=== PATIENT | male | born 1965 | race Caucasian/White ===

== ENCOUNTER → 2023-07-01 | Outpatient (CLI) | payer OTHER, SELFPAY | END | disposition home or self-care (01) | LOC: LAB 14:39 | PROVIDERS: PCP Family Medicine; Referring Provider Nurse Practitioner; Visit Provider Nurse Practitioner | DX: C61 Malignant neoplasm of prostate (principal) | CPT/HCPCS: 36415; 84153 ==

== ENCOUNTER → 2023-07-24 | Outpatient (CLI) | payer OTHER, SELFPAY ==
--- NOTE | 2023-07-24 13:01 | MRI_ITS ---
STUDY: MR PELVIS WITH AND WITHOUT CONTRAST (PROSTATE) REASON FOR EXAM: Male, 58 years old. Elevated PSA, malignant neoplasm of the prostate gland TECHNIQUE: Multiplanar, multisequence imaging of the pelvis in accordance with PIRADS recommendations before and after intravenous administration of 25 mL clariscan on a 1.5 TE platform using external phased array coil. Dedicated 3 plane small field of view T2 FSE, axial diffusion-weighted imaging with width B values 50-800 s/mm2 and calculated o=5860 s/mm2 and ADC map; and axial contrast enhanced T1 weighted images (dynamic images not available) with temporal resolution in 3 mm slice thickness in addition to full pelvis postcontrast T1-weighted imaging. COMPARISON:None FINDINGS: Size: 3.9 x 4.9 x 4.8 (Lx W x H) cm for 47.7 cubic cm. Quality: Excellent Hemorrhage: Not present Peripheral zone: Homogenous, focal lesion below. Transition zone: Mild heterogeneity without focal lesion. Lesion #1: Location: Left mid gland peripheral zone nodule Size: 0.8 x 0.9 cm T2: homogeneous, moderately hypointense without clear extraprostatic extension, sequence category 4/5 (image 15 series 9) DWI: focal hyperintense on high b-value DWI and markedly hypointense on ADC, sequence category 4/5 (images 17 on series 600 and series 601). Prostate margin: No definitive extraprostatic extension. Lesion overall PI-RADS: 4/5 Neurovascular bundles: Possible involvement with nodule near the neurovascular bundle on image 15 series 9 Seminal vesicles: not involved. Seminal vesicle cysts. Lymph nodes: Mildly enlarged lymph nodes of the bilateral inguinal creases with short axis measuring up to 1.1 cm on the right side. There is also a mildly enlarged lymph node in the lower portion of the retroperitoneum posterior to the left common iliac vein measuring 1.2 cm on image 7 series 4. Bones: no osseous metastases suggested Other pelvic organs: normal MRI/Pelvis W/WO Contrast IMPRESSION: 1. PI-RADS 4 - High (clinically significant cancer is likely to be present). 2. Bilateral inguinal and lower retroperitoneal/iliac chain lymph nodes are indeterminate. PI?RADSR v2.1 Assessment Categories PI-RADS 1 ? Very low (clinically significant cancer is highly unlikely to be present) PI-RADS 2 ? Low (clinically significant cancer is unlikely to be present) PI-RADS 3 ? Intermediate (the presence of clinically significant cancer is equivocal) PI-RADS 4 ? High (clinically significant cancer is likely to be present) PI-RADS 5 ? Very high (clinically significant cancer is highly likely to be present) Electronically Signed: Tunde Ascencio MD (Brooks) at 14:55 EDT Reading Location ID and State: [facility] / [place] , Service support ,
[2023-07-24 13:50] LABS: CREATININE FINGERSTICK 1.3 mg/dL (0.70-1.30); EGFR FINGERSTICK > 60.0000 mL/min (>60)
== END | disposition home or self-care (01) ==
LOC: MRI 12:59
PROVIDERS: PCP Family Medicine; Referring Provider Urology; Visit Provider Urology
DX: C61 Malignant neoplasm of prostate (principal)
CPT/HCPCS: 72197; A9575

== ENCOUNTER → 2023-10-21 | Outpatient (CLI) | payer OTHER, SELFPAY ==
--- NOTE | 2023-10-21 | PROSBIL_PTH ---
PATHOLOGY RESULTS PATIENT: WENDI MORALES [id number] AGE/SX: 58/M ROOM: RE10/21/[address]: Dr. Jose Miguel Newton MD : 1965 BED: DIS: 10/21/2023 SPEC #: [id number] RECD: 10/21/23 15:56 STATUS: JOSÉ ANTONIO REHoang #: [id number] RIO: 10/21/23 00:[address]: Jose Miguel Newton DEPT: SURGICAL PATHOLOGY RECD BY: Mumtaz Lopez ENTERED: 10/22/23 07:50 SP TYPE: PROST BX OT DR: Dr. India Reeves MD Tissues: PROSTATE RIGHT PROSTATE RIGHT PROSTATE RIGHT PROSTATE LEFT PROSTATE LEFT PROSTATE LEFT Procedures: PROSTATE BX HEADER OPERATION: Prostate biopsy PRE-OP DIAGNOSIS: Elevated PSA TISSUE SUBMITTED: A - Right apex, B - Right mid, C - Right base, D - Left apex, E - Left mid, F - Left base MICROSCOPIC DIAGNOSIS A. Right prostate, apex, core biopsy: Adenocarcinoma. [place] grade: 6 (3+3) Cores involved: 2 out of 2 cores Tissue involved: 60% Greatest tumor length: 7 millimeters B. Right prostate, mid, core biopsy: Adenocarcinoma. [place] grade: 6 (3+3) Cores involved: 2 out of 2 cores Tissue involved: 90% Greatest tumor length: 11 millimeters (discontinuous) Perineural invasion: Present See comment. C. Right prostate, base, core biopsy: Adenocarcinoma. [place] grade: 7 (3+4) Cores involved: 1 out of 2 cores Tissue involved: 45% Greatest tumor length: 6.5 millimeters See comment. D. Left prostate, apex, core biopsy: Adenocarcinoma. [place] grade: 6 (3+3) Cores involved: 1 out of 2 cores Tissue involved: 10% Greatest tumor length: 1.5 millimeters See comment. E. Left prostate, mid, core biopsy: Adenocarcinoma. [place] grade: 7 (3+4) Cores involved: 2 out of 2 cores Tissue involved: 40% (discontinuous) Greatest tumor length: 1 millimeter See comment. F. Left prostate, base, core biopsy: Focal atypical small acinar proliferation. Focal chronic inflammation. See comment. AM:emily 10/23/2023 COMMENT B-F. Immunohistochemistry ([id number]) supports the above diagnosis. Case has been reviewed in consultation with Dr. Del Real who concurs with the above diagnosis. IDC:[email or web address] MICROSCOPIC DESCRIPTION Slides are reviewed. GROSS DESCRIPTION A - Received is one container designated prostate, right apex. The specimen consists of two elongated fragments of light carter-white soft tissue each measuring 1.0 cm in length and 0.1 cm in diameter. The specimen is totally submitted in one cassette. B - Received is one container designated prostate, right mid. The specimen consists of two elongated fragments of light carter-white soft tissue measuring 1.1 and 1.4 cm in length and 0.1 cm in diameter. The specimen is totally submitted in one cassette. C - Received is one container designated prostate, right base. The specimen consists of two elongated fragments of light carter-white soft tissue measuring 0.8 and 1.2 cm in length and 0.1 cm in diameter. The specimen is totally submitted in one cassette. D - Received is one container designated prostate, left apex. The specimen consists of two elongated fragments of light carter-white soft tissue measuring 0.5 and 1.5 cm in length and 0.1 cm in diameter. The specimen is totally submitted in one cassette. E - Received is one container designated prostate, left mid. The specimen consists of two elongated fragments of light carter-white soft tissue each measuring 1.0 cm in length and 0.1 cm in diameter. The specimen is totally submitted in one cassette. F - Received is one container designated prostate, left base. The specimen consists of two elongated fragments of light carter-white soft tissue each measuring 1.0 cm in length and 0.1 cm in diameter. The specimen is totally submitted in one cassette. / SJ:rg 10/22/2023 TC:0 [facility]: [id number] [phone]
--- NOTE | 2023-10-21 | IMM_PTH ---
PATHOLOGY RESULTS PATIENT: WENDI MORALES LOC: [facility] U#:[id number] AGE/SX: 58/M ROOM: RE10/21/[address]: Dr. Jose Miguel Newton MD : 1965 BED: DIS: 10/21/2023 SPEC #: [id number] RECD: 10/23/23 13:44 STATUS: JOSÉ ANTONIO REQ #: [id number] RIO: 10/21/23 00:[address]: Jose Miguel Newton DEPT: IMMUNOHISTOCHEMISTRY RECD BY: Navya Johnson ENTERED: 10/23/23 13:45 SP TYPE: IMMUNO OTHR DR: Dr. India Reeves MD Tissues: PROSTATE RIGHT PROSTATE RIGHT PROSTATE LEFT PROSTATE LEFT PROSTATE LEFT Procedures: 34BE12 (add) P40 (add) 34BE12 (initial) PHYSICIAN & INSTITUTION [place] [id number] SPECIMEN INFORMATION: Tissue Source: B - Right mid, C - Right base, D - Left apex, E - Left mid, F - Left base Clinical Info: Elevated PSA Specimen Number: [id number] B-F CPT code: 21545, 58696 x9 METHODOLOGY: Deparaffinized sections of prefer/formalin-fixed tissue or PAP/DQ stained slides are incubated with monoclonal/polyclonal antibodies/oligonucleotide probes. Localization is made via biotin free immunoperoxidase method. Appropriate controls are performed and reacted as expected. Results on target cell population are indicated in the following table: RESULTS: ANTIBODY / CLONE RESULT Block B P40 (BC28) negative 34BE12 (34BE12) negative Block C P40 (BC28) negative 34BE12 (34BE12) negative Block C P40 (BC28) negative 34BE12 (34BE12) negative Block E P40 (BC28) negative 34BE12 (34BE12) negative Block F P40 (BC28) negative 34BE12 (34BE12) negative These tests were developed and their performance characteristics determined by [facility]. They may not have been cleared or approved by the U.S. Food and Drug Administration. The FDA has determined that such clearance or approval is not necessary. The above immunohistochemical/dualISH markers are ordered and reviewed by the Pathologist. INTERPRETATION: B. Right prostate, mid, core biopsy: Adenocarcinoma. C. Right prostate, base, core biopsy: Adenocarcinoma. D. Left prostate, apex, core biopsy: Adenocarcinoma. E. Left prostate, mid, core biopsy: Adenocarcinoma. F. Left prostate, base, core biopsy: Focal atypical small acinar proliferation. AM:emily 10/24/2023
== END | disposition home or self-care (01) ==
LOC: LABSPEC 16:04
PROVIDERS: PCP Family Medicine; Referring Provider Urology; Visit Provider Urology
DX: R97.20 Elevated prostate specific antigen [PSA] (principal)
CPT/HCPCS: 88305; 88341; 88342; G0416

== ENCOUNTER → 2023-11-06 | Outpatient (CLI) | payer OTHER, SELFPAY ==
--- NOTE | 2023-11-06 13:50 | CT_ITS ---
STUDY: CT ABDOMEN AND PELVIS WITH CONTRAST REASON FOR EXAM: Male, 58 years old. C61 Malignant neoplasm of prostate. Elevated PSA. RADIATION DOSAGE (If Supplied By Facility): CTDIvol = ( 18.68 ) mGy, DLP = ( 1447.21 ) mGycm TECHNIQUE: Transaxial images were obtained from the dome of the diaphragm to the symphysis pubis with oral contrast. Oral and amp;amp; IV Readi-CAT and amp;amp; 100mL Isovue-300 was administered. Sagittal and coronal images were reconstructed. Individualized dose optimization techniques were used for this CT. COMPARISON: None. FINDINGS: The visualized lung bases are unremarkable. The visualized portions of the heart are within normal limits. There is decreased attenuation of the liver consistent with steatosis. Normal gallbladder and extrahepatic biliary system. Normal spleen. Normal pancreas. Normal bilateral adrenal glands. Normal right kidney. Normal left kidney. There is a small hiatal hernia. Normal small intestine. Normal colon. The appendix is visualized and appears normal. There is scattered atherosclerotic calcification of the abdominal aorta, without a demonstrated aneurysm. Normal inferior vena cava. Normal retroperitoneum. Normal urinary bladder. The prostate measures 4.9 cm x 5.2 cm. Calcifications seen within it. There is heterogeneous appearance of the prostate. There is a small umbilical hernia containing fat. Small benign-appearing bilateral inguinal lymph nodes. There are degenerative changes of the visualized lumbar spine. Minimal anterior listhesis of L4 on L5 most likely secondary to facet joint osteoarthritis. CT/Abdomen/Pelvis WITH Contrast IMPRESSION: Fatty infiltration of the liver. Mild enlargement of the prostate with heterogeneous density. Electronically Signed: Bishnu Perez MD at 14:40 EST ,
== END | disposition home or self-care (01) ==
PROVIDERS: PCP Family Medicine; Referring Provider Urology; Visit Provider Urology
DX: C61 Malignant neoplasm of prostate (principal)
CPT/HCPCS: 74177; Q9967

== ENCOUNTER → 2023-11-11 | Outpatient (CLI) | payer OTHER, SELFPAY ==
--- NOTE | 2023-11-11 08:10 | NM_ITS ---
CLINICAL: 58-year-old male with history of elevation of the serum PSA. WHOLE BODY 99m Tc MDP RADIONUCLIDE BONE SCINTIGRAPHY COMPARISON: CT of the abdomen-pelvis 11/06/2023 FINDINGS: Following the intravenous administration of 25.0 mCi of 99m Tc MDP, whole body bone images reveal: 1. Increased tracer concentration is defined in the patellofemoral and medial tibial compartments of both knees, the dorsal medial compartment of the left ankle, the bilateral midfoot, the acromioclavicular and sternoclavicular compartments of both shoulders, fourth lumbar vertebra posteriorly in the midline. 2. The remaining skeletal structures are scintigraphically unremarkable with normal-appearing renal images and urinary bladder activity identified. NM/Bone Scan Whole Body IMPRESSION: 1. The increase in radiopharmaceutical concentration defined in the bilateral shoulders, fourth lumbar vertebra, the wrist and knee articulations bilaterally, the right ankle and left midfoot is commensurate with degenerative arthritis. 2. There is no definitive typical scintigraphic evidence of skeletal metastatic disease. Electronically Signed: Louis Hubbard DO at 23:50 EST ,
--- OUTSIDE RECORDS SUMMARY | 2023-11-11 08:58 | XMS RPT_ITS | CCD ---
Author Name Unknown Address [address] [place] [address] Organization [facility] Care Team Providers Care Personal Injury Paralegal Name Role Phone ANDREW MOYA, DR ATKINSON Primary Care Physician ANDREW MOYA, DR ATKINSON Attending Unavailable ANDREW MOYA, DR ATKINSON Primary Care Unavailable ANA M MOYA, DR KIMO Corcoran Attending Vahid MORALES MD, DR ATKINSON Primary Care Unavailable ANA M MOYA, DR KIMO Corcoran Admitting Vahid WORTHINGTON MD, BRIDGETTE Admitting Jeffry MORALES MD, DR ATKINSON Primary Care Unavailable ALYSSA MOYA, ALEYDA Oliva Consulting Jeffry SHETH MD, JUAN LUIS Becker Attending Jeffry VIRAMONTES MD, DR KIMO Corcoran Consulting Vahid SMITH MD, MARY Consulting Unavailable NATALIE SIEGEL MD, DR NGUYỄN Consulting Leighton VICTORIA MD, JENNIFER Consulting Unavailable ANDREW MOYA, DR ATKINSON Attending Jeffry MORALES MD, DR ATKINSON Primary Care Unavailable Mckenzie MORALES MD Unavailable Jose Miguel Newton Unavailable Unavailable RENAL, GENERAL Unavailable Unavailable BUCKTOWARSING, BHAVNISH Unavailable Unavailneeta RODRIGUEZ MD, PAU Alvarez Unavailable GOOD MOYA, CHINA Alvarez Unavailable DIALLO ANGEL MD Unavailable MAURIZIO DE LUNA Unavailable Saray Lott RN Unavailable Unavailable GOOD MOYA, WAGNER Aguila Unavailable [phone] BIANCA ASHBY RN Unavailable Unavailable BALWINDER RUSHING RN Unavailable UnavailHETAL Law Unavailable Unavailable Nilo MORALES MD Unavailable SANTY MARTELL Unavailable Unavailable Ilana Mccauley Unavailable Unavailable Cheri Giron Unavailable Unavailable Berny RN, Yane Unavailable Unavaila taisha Garcia RN, Pamela Unavailable Unavailable Unavailable Unavailable AGGIE RAM MD Admitting UnavailAGGIE Cheung MD Primary Care UnavailAGGIE Cheung MD Attending Unavailabl e KWESI CALDWELL PA%C Admitting Unavail able KWESI CALDWELL PA%C Primary Care Unavail able KWESI CALDWELL PA%C Attending Unavail able JAYME CARRERA MD Admitting Unavailable JAYME CARRERA MD Primary Care Unavailable JAYME CARRERA MD Attending Unavailable JAYME CARRERA MD Admitting Unavailable JAYME CARRERA MD Primary Care Unavailable JAYME CARRERA MD Attending Unavailable OLGA LIDIA SCHERER DO Primary Care Unavailable OLGA LIDIA SCHERER DO Attending Unavailable Mckenzie MORALES Consulting Unavailable Mckenzie MORALES Referring Unavailable OLGA LIDIA SCHERER DO Admitting Unavailable PROVIDER, UNKNOWN Consulting Unavailable PROVIDER, UNKNOWN Consulting Unavailable PROVIDER, UNKNOWN Consulting Unavailable Allergies Allergy Classification Reported Allergen(s) Allergy Type Date of Onset Reaction(s) Facility (9 sources) Lisinopril; Translations: [lisinopril] Drug Allergy 12-11-2022 cough [facility] (1 source) Lisinopril Drug Allergy [facility] Repository Medications Current Medications Medication Drug Class(es) Dates Sig (Normalized) Sig (Original) apixaban 5 mg oral tablet (9 sources) Factor Xa Inhibitor Start: 03-14-2023 apixaban 5 mg oral tablet Dose : 5 mg = 1 tab(s), Oral, BID, # 60 tab(s), 3 Refill(s), Pharmacy: [facility], 188, cm, 02/20/23 16:30:00 EDT, Height, 125 Start Date: 03/14/23 Status: Ordered Completed/Discontinued Medications Medication Drug Class(es) Dates Sig (Normalized) Sig (Original) amLODIPine 10 mg oral tablet (7 sources) Dihydropyridine Calcium Channel Ayala Start: 03-05-2020 End: 04-05-2021 take 1 tablet by mouth once daily amLODIPine Besylate 10 MG Oral Tablet ; 1 (one) Tablet daily for 90 days Quantity: 90 {Tablet} Refills: 3 Ordered: 05-Apr-2021 MD Mckenzie MORALES Start: 05-Mar-2020 End: 05-Apr-2021 Status: Inactive aspirin 81 mg oral tablet (7 sources) Platelet Aggregation Inhibitor, Nonsteroidal Anti-inflammatory Drug take 1 tablet by mouth once daily Aspirin 81 MG Oral Tablet ; 1 daily (81 MG) Status: Inactive azithromycin 250 mg oral tablet (7 sources) Macrolide Antimicrobial Start: 02-05-2011 End: 03-17-2013 AZITHROMYCIN, 250MG (Oral Tablet) ; Tablet daily for 0 days Quantity: 6 {Tablet} Refills: 0 Ordered: 17-Mar-2013 SHERYL Lott Start: 05-Feb-2011 End: 17-Mar-2013 Status: Inactive Comments: take two tablets day one and then one tablet daily for 4 daysmeds to be dispensed in office Problems Active Problems Problem Classification Problem Date Documented Da te Episodic/Chronic Acute bronchitis (14 sources) Acute bronchitis; Translations: [Acute bronchitis, unspecified] 02-05-2011 Episodic Administrative/social admission (20 sources) Patient encounter status; Translations: [Counseling, unspecified] 01-26-2020 Episodic Cancer of prostate (20 sources) Malignant tumor of prostate; Translations: [Malignant neoplasm of prostate] Onset: 09-30-2019 07-30-2023 Chronic Past or Other Problems Problem Classification Problem Date Documented Date Episodic/Chronic Headache; including migraine (20 sources) Headache; including migraine 12-11-2022 Other aftercare (2 sources) Encounter for therapeutic drug level monitoring; Translations: [Encounter for therapeutic drug level monitoring] Onset: 03-28-2023 Episodic Unclassified (7 sources) Transition into care - The patient is transitioning into care from a hospital ([facility] 03/29 - 04/01/23 treated for Atrial Fib). 04-08-2023 Unclassified (7 sources) Transition into care - The patient is transitioning into care from a hospital ([facility] 03/13/23 to for atrial fibrillation). Note for Transition into care : states seems to be better. Been taking blood pressure and pulse at home and pulse have been low. 03/19/23 pulse was 51 03/26/23 54 03/27/23 43 and 03/27/23 52. He states he was felling tired, but not sure if it has to do with pulse being down. 03-27-2023 Unclassified (7 sources) [ADDITIONAL REASON] Elevated PSA - Note for Elevated PSA : review recent labs. 12-11-2022 Unclassified (6 sources) [ADDITIONAL REASON] Atrial Fibrillation - The last clinic visit was 4 month(s) ago. Note for Atrial fibrillation : sees Dr Ram. 12-11-2022 Unclassified (3 sources) HYPERTENSION - Note for HYPERTENSION : checks BP at home. Review recent labs. 08-21-2022 Unclassified (4 sources) [ADDITIONAL REASON] hyponkalemia - does not take potassium any more. See lab reports. 08-21-2022 Unclassified (6 sources) [ADDITIONAL REASON] Immunization - Immunizations discussed with patient/ parent: yes (declines flu shot.). 08-21-2022 Unclassified (7 sources) HYPERTENSION - Note for HYPERTENSION : Pt is feeling good. 04-03-2022 Unclassified (7 sources) !Patient notification of lab results - Dr. Morales. The test(s) that you had done were/was blood work (There was a slight increase in the PSA to 5.8. We should retest in 6 months. The iron was back to normal). You should call our office if you have any questions. Please continue your current medication/therapy and follow up as scheduled. 12-06-2021 Unclassified (7 sources) HYPERTENSION - The symptoms have been associated with edema (occasional), while the symptoms have not been associated with chest pain. 12-05-2021 Unclassified (7 sources) !Patient notification of lab results - Dr. Morales. The test(s) that you had done were/was blood work (This was normal). You should call our office if you have any questions. Please continue your current medication/therapy and follow up as scheduled. 05-03-2021 Unclassified (7 sources) !Patient notification of lab results - Dr. Morales. The test(s) that you had done were/was blood work (Your kidney function is a bit worse again with a creatinine of 1.55. Your PSA was 5.51 and your iron remains a bit low at 53. Please continue iron supplementation and contact Dr. Caballero (nephrology) to verify that you have a follow up appointment.). You should call our office if you have any questions. Please continue your current medication/therapy and follow up as scheduled. 04-06-2021 Unclassified (7 sources) HYPERTENSION - The symptoms have been associated with edema (Bilateral ankle/foot edema resolves overnight.), while the symptoms have not been associated with chest pain or dyspnea. 04-05-2021 Unclassified (7 sources) [ADDITIONAL REASON] hypokalemia - saw Dr Caballero 08-19 and switched Losartan Potassium HCTZ to Diovan and added Vit D3. Had recent labs. 09-06-2020 Unclassified (7 sources) Rash - The onset of the rash has been acute and has been occurring in a persistent pattern for 4 days. The course has been constant. The rash is characterized as red and flat. The rash was first seen on the lower extremity (right lower leg). There has been associated chills, fatigue, fever and pain, while there has been no itching. Note for Rash : pt felt chills and nausea 07-14-20 and got negative COVID test at home. No injury or bite. 07-18-2020 Unclassified (5 sources) HYPERTENSION - Note for HYPERTENSION : review recent labs. Thinks he is taking clonidine daily instead of twice daily. Not on Potassium. 06-13-2020 Unclassified (5 sources) [ADDITIONAL REASON] Follow up Tests results - Lab results: elevated PSA. Note for Follow up to discuss laboratory test results : saw Dr Rodriguez and did biospy. Will follow up 06-21-20. 06-13-2020 Unclassified (4 sources) HYPERTENSION - There has been no associated chest pain. 04-12-2020 Unclassified (4 sources) [ADDITIONAL REASON] Follow up Tests results - Lab results: abnormal electrolytes. Date: (03-28-20). Note for Follow up to discuss laboratory test results : Referral sent to Kidney and Hypertension specialist. 04-12-2020 Unclassified (7 sources) !Patient notification of lab results - Dr. Morales. The test(s) that you had done were/was blood work (Your kidney function is a bit lower again at 1.6 (higher is poorer function) but better than it had been several weeks ago. Your potassium is still low. I would like to send you to see the kidney specialist (hot walker) in [place] to further evaluate the situation. Please let us know if you are agreeable to the consultation). You should call our office if you have any questions. 03-29-2020 Unclassified (7 sources) !Patient notification of lab results - Dr. Morales. The test(s) that you had done were/was blood work (Your potassium is still low. Please increase to 2 of the 10 mEq potassium 2x daily. We should recheck the labs in 10 days.). You should call our office if you have any questions. 03-16-2020 Unclassified (7 sources) !Patient notification of lab results - Dr. Morales. The test(s) that you had done were/was blood work (Your potassium was low at 3.1. This is likely due to the HCTZ in your blood pressure medication. I am sending a potassium supplement to the pharmacy that you should start taking daily. I would like you to have a repeat lab test 1 month after you start it.Your PSA test was elevated slightly at 5.43. This can be due to enlargement of the prostate or it can be an indication of an early prostate cancer. I would like to have this repeated again in 1 month and then have you back for a follow up exam in the office a week or two later.). You should call our office if you have any questions. 01-27-2020 Unclassified (7 sources) Foot Problem - Note for Foot problem : Left foot 3rd toenail was thick, yellow/brown and ruff. Skin around toenail is red and was tender. Pt sanded the nail last night and it feels better this morning. Symptoms started months ago and have gotten worse. 01-26-2020 Unclassified (7 sources) Foot Problem - Symptoms are located in the right foot (ingrown great toenail). Onset was week(s) ago. Note for Foot problem : . 12-09-2017 Unclassified (7 sources) Routine Check - Patient is here to review the medical problem(s) of hypertension. Note for Routine Check : c/o itching in groin and thigh area after work when undressing to shower. No rash. Worse in the summer months.. 10-10-2017 Unclassified (7 sources) Unspecified Diagnosis 09-13-2016 Unclassified (7 sources) HYPERTENSION - Note for HYPERTENSION : Last visit was 2 months ago.. 09-13-2016 Unclassified (7 sources) !Patient notification of lab results 1 - [place]. The test(s) that you had done were/was a Lyme disease test. The results of your testing were negative . Please let us know if your symptoms do not improve. 07-07-2016 Unclassified (7 sources) [ADDITIONAL REASON] Transition into care - The patient is transitioning into care from an emergency room and a summary of care was reviewed . 07-03-2016 Unclassified (5 sources) [ADDITIONAL REASON] HYPERTENSION - Note for HYPERTENSION : Needs Amlodipine refilled. 07-03-2016 Unclassified (7 sources) HYPERTENSION - Note for HYPERTENSION : No headaches, dizzy spells, swelling of ankles, chest pain or shortness of breath. 02-20-2016 Unclassified (7 sources) HYPERTENSION - Note for HYPERTENSION : Last visit was 3 weeks ago.. 11-17-2015 Unclassified (7 sources) !Patient notification of lab results 1 - [place]. The test(s) that you had done were/was a CMP (kidneys, liver, nutrition, sugar). The results of your testing were normal . Please note that we have included copies of your results, continue your current medication/therapy and follow up as scheduled. 10-28-2015 Unclassified (7 sources) HYPERTENSION - Note for HYPERTENSION : Last visit was 1 week ago.. 10-27-2015 Unclassified (7 sources) !Patient notification of lab results 1 - Dr. Morales. Note for !Patient notification of lab results 1 : Wendi, your labs looked fine. 03-20-2013 Unclassified (7 sources) Cough - The cough has been occurring in a persistent pattern for 1 month. The cough is characterized as productive of mucoid sputum (HAS HAD COUGH FOR 1 MONTH). Note for Cough : IS VERY FATIGUED AND ACHES ALL OVER. 10-23-2010 Unclassified (1 source) Atrial Fibrillation - The last clinic visit was 4 month(s) ago. Note for Atrial fibrillation : sees Dr Ram. 12-11-2022 Unclassified (3 sources) hyponkalemia - does not take potassium any more. See lab reports. 08-21-2022 Unclassified (4 sources) [ADDITIONAL REASON] HYPERTENSION - Note for HYPERTENSION : checks BP at home. Review recent labs. 08-21-2022 Unclassified (3 sources) Follow up Tests results - Lab results: abnormal electrolytes. Date: (03-28-20). Note for Follow up to discuss laboratory test results : Referral sent to Kidney and Hypertension specialist. 04-12-2020 Unclassified (3 sources) [ADDITIONAL REASON] HYPERTENSION - There has been no associated chest pain. 04-12-2020 Unclassified (2 sources) HYPERTENSION - Note for HYPERTENSION : Needs Amlodipine refilled. 07-03-2016 Unclassified (4 sources) [ADDITIONAL REASON] Atrial Fibrillation - The last clinic visit was 5 month(s) ago. Note for Atrial fibrillation : sees cardio. Last visit Sep 2023 and they discontinued Eliquis. 10-15-2023 Unclassified (2 sources) Follow up Tests results - Lab results: elevated PSA. Note for Follow up to discuss laboratory test results : saw Dr Rodriguez and did biospy. Will follow up 06-21-20. 06-13-2020 Unclassified (2 sources) [ADDITIONAL REASON] HYPERTENSION - Note for HYPERTENSION : review recent labs. Thinks he is taking clonidine daily instead of twice daily. Not on Potassium. 06-13-2020 Unclassified (1 source) Immunization - Immunizations discussed with patient/ parent: yes (declines flu shot.). 08-21-2022 Urinary tract infections (7 sources) Urinary tract infections 07-03-2016 Results Test Name Value Interpretation Reference Range Facil ity Vital Signs Date Time Vital Sign Value Performing Clinician Nelson castro 10-15-2023 16:41-0500 Body height 181.61 cm Yane Arrieta RN [facility] [employer] [facility] 10-15-2023 16:41-0500 Body mass index (BMI) [Ratio] 38.23 kg/m2 Yane Arrieta RN [facility] [place] [employer] [facility]. 10-15-2023 16:41-0500 Body surface area Derived from formula 2.44 m2 Yane Arrieta RN [facility] [place].; [employer] [facility]. 10-15-2023 16:41-0500 Body weight 126.1 kg Yane Arrieta RN [facility] [employer] [facility].; [facility] [employer] [facility]. 10-15-2023 16:41-0500 Diastolic blood pressure 81 mm[Hg] Yane [facility] RN [facility]; [facility] [place] Encounters Encounter Date Encounter Type Care Provider Facility Start: 10-15-2023 Patient encounter procedure Mckenzie MORALES MD Work Phone: [facility] [place] Start: 10-15-2023 End: 10-15-2023 Office outpatient visit 15 minutes Mckenzie MORALES MD Work Phone: [facility] [place] Start: 10-10-2023 End: 10-10-2023 ambulatory KWESI NANCE ROMELIA [facility] Start: 07-18-2023 End: 07-18-2023 Historical Summary Mck[facility]ALES [facility] Start: 07-17-2023 End: 07-18-[address] KIMO VIRAMONTES MD Facility:A Start: 07-17-2023 End: 07-18-[address] KIMO VIRAMONTES MD [facility] Start: 07-08-2023 End: 07-08-2023 Historical Summary Mckenzie MORALES MD [facility] Start: 07-02-2023 End: 07-02-2023 Lab Only Mckenzie MORALES MD [facility] Start: 04-12-2023 End: 04-12-2023 Telephone follow-up Mckenzie MORALES MD Work Phone: [facility] [place] Start: 04-10-2023 End: 04-10-2023 Historical Summary Mckenzie MORALES MD Work Phone: [facility] [place] Start: 04-09-2023 End: 04-10-2023 ambulatory JAYME MOYA [facility] Start: 04-08-2023 End: 04-08-2023 Transitional care manage srvc 7 day discharge Mckenzie MORALES MD Work Phone: [facility] [employer] Start: 04-04-2023 End: 04-04-2023 Historical Summary Mckenzie MORALES MD Work Phone: [facility] Start: 03-29-2023 End: 04-01-2023 Evaluation and management of inpatient BRIDGETTE WORTHINGTON MD Facility:A Start: 03-29-2023 End: 04-01-2023 Evaluation and management of inpatient BRIDGETTE WORTHINGTON MD [facility] Start: 03-28-2023 End: 03-29-2023 Emergency department patient visit OLGA LIDIA GALICIA [facility] Start: 03-28-2023 End: 04-02-[address] CHINA MORALES MD Facility:A Start: 03-27-2023 End: 03-27-2023 Transitional care manage srvc 14 day discharge Mckenzie MORALES MD Work Phone: [facility] [employer] [facility] Start: 03-16-2023 End: 03-16-2023 Historical Summary Mckenzie MORALES MD [facility] Start: 03-13-2023 End: 03-16-2023 Evaluation and management of inpatient JAYME MOYA EUGENE [facility] Start: 03-08-2023 End: 03-08-2023 [facility] Start: 12-11-2022 End: 12-11-2022 Office outpatient visit 15 minutes Mckenzie MORALES MD Work Phone: [facility] [facility] Start: 12-04-2022 End: 12-04-2022 Lab Only Mckenzie MORALES MD Work Phone: [facility] [place] Start: 12-04-2022 End: 12-09-[address] CHINA MORALES MD Facility:A Start: 08-21-2022 End: 08-21-2022 Office outpatient visit 15 minutes Mckenzie MORALES MD Work Phone: [facility] Start: 08-14-2022 End: 08-14-2022 Lab Only Mckenzie MORALES MD Work Phone: [facility] [employer]. Start: 04-03-2022 End: 04-03-2022 Office outpatient visit 15 minutes Mckenzie MORALES MD Work Phone: [employer] [facility] Start: 02-08-2022 End: 02-08-2022 Medication Refill/Order Mckenzie MORALES MD Work Phone: [employer] [facility] Start: 12-06-2021 End: 12-06-2021 Follow-up encounter Mckenzie MORALES MD Work Phone: [facility] Start: 12-05-2021 End: 12-05-2021 Office outpatient visit 15 minutes Mckenzie MORALES MD Work Phone: [employer] [facility] Start: 10-31-2021 End: 11-01-2021 Medication Refill/Order Mckenzie MORALES MD Work Phone: [employer] [facility]. Start: 09-25-2021 End: 09-25-2021 Historical Summary Mckenzie MORALES MD Work Phone: [employer]. Start: 05-03-2021 End: 05-03-2021 Follow-up encounter Mckenzie MORALES MD Work Phone: [employer] [place] [employer]. Start: 05-02-2021 End: 05-02-2021 Office outpatient visit 15 minutes Mckenzie MORALES MD Work Phone: [employer] Start: 04-06-2021 End: 04-06-2021 Follow-up encounter Mckenzie MORALES MD Work Phone: [employer] [place] [employer] Start: 04-05-2021 End: 04-05-2021 Office outpatient visit 15 minutes Mckenzie MORALES MD Work Phone: [employer] [place] [employer] Start: 09-06-2020 End: 09-06-2020 Patient encounter procedure Mckenzie MORALES MD Work Phone: [employer] Start: 09-06-2020 End: 09-06-2020 Office outpatient visit 15 minutes Mckenzie MORALES MD Work Phone: [employer] Start: 08-20-2020 End: 08-20-2020 Historical Summary Mckenzie MORALES MD Work Phone: [employer] [place] [employer] Start: 08-16-2020 End: 08-16-2020 Historical Summary Mckenzie MORALES MD Work Phone: [employer] [place] [employer] Start: 07-18-2020 End: 07-18-2020 Office outpatient visit 15 minutes Mckenzie MORALES MD Work Phone: [employer] Start: 06-13-2020 End: 06-13-2020 Office outpatient visit 15 minutes Mckenzie MORALES MD Work Phone: [employer] Start: 04-12-2020 End: 04-12-2020 Office outpatient visit 25 minutes Mckenzie MORALES MD Work Phone: [employer] Start: 04-02-2020 End: 04-02-2020 Results Review Mckenzie MORALES MD Work Phone: [employer] Start: 03-29-2020 End: 03-29-2020 Patient encounter procedure Mckenzie MORALES MD Work Phone: [email or web address] Start: 03-28-2020 End: 03-28-2020 Lab Only Mckenzie MORALES MD Work Phone: [email or web address]. Start: 03-16-2020 End: 03-16-2020 Results Review Mckenzie MORALES MD Work Phone: [employer]. Start: 03-15-2020 End: 03-15-2020 Lab Only Mckenzie MORALES MD Work Phone: [employer] Start: 03-05-2020 End: 03-05-2020 Medication Refill/Order Mckenzie MORALES MD Work Phone: [email or web address] Start: 03-04-2020 End: 03-04-2020 Lab Only Mckenzie MORALES MD Work Phone: [employer] Start: 01-27-2020 End: 01-27-2020 Follow-up encounter Mckenzie MORALES MD Work Phone: [email or web address] Start: 01-26-2020 End: 01-26-2020 Office outpatient visit 15 minutes Mckenzie MORALES MD Work Phone: [email or web address]. Start: 01-08-2019 End: 01-08-2019 Office outpatient visit 10 minutes Mckenzie MORALES MD Work Phone: [employer] Start: 12-30-2018 End: 12-30-2018 Medication Refill/Order Mckenzie MORALES MD Work Phone: [employer] Start: 12-09-2017 End: 12-09-2017 Office outpatient visit 25 minutes Mckenzie MORALES MD Work Phone: [email or web address]. Start: 10-10-2017 End: 10-10-2017 Office outpatient visit 10 minutes Mckenzie MORALES MD Work Phone: [email or web address]. Start: 09-13-2016 End: 09-13-2016 Medication Refill/Order Mckenzie MORALES MD Work Phone: [email or web address]. Start: 09-13-2016 End: 09-13-2016 Office outpatient visit 15 minutes Mckenzie MORALES MD Work Phone: [email or web address]. Start: 07-07-2016 End: 07-07-2016 Results Review Mckenzie MORALES MD Work Phone: [email or web address]. Start: 07-03-2016 End: 07-03-2016 Office outpatient visit 15 minutes Mckenzie MORALES MD Work Phone: [facility] [employer]. Start: 06-25-2016 End: 06-25-2016 Historical Summary Mckenzie MORALES MD Work Phone: [email or web address]. Start: 02-20-2016 End: 02-20-2016 Office outpatient visit 10 minutes Mckenzie MORALES MD Work Phone: [employer]. Start: 11-17-2015 End: 11-17-2015 Office outpatient visit 10 minutes Mckenzie MORALES MD Work Phone: [employer]. Start: 10-28-2015 End: 10-28-2015 Follow-up encounter cMkenzie MORALES MD Work Phone: [employer]. Start: 10-27-2015 End: 10-27-2015 Office outpatient visit 10 minutes Mckenzie MORALES MD Work Phone: [employer]. Start: 10-20-2015 End: 10-20-2015 Office outpatient visit 10 minutes Mckenzie MORALES MD Work Phone: [facility] [employer] [facility] [place] Start: 04-21-2013 End: 04-21-2013 Patient encounter procedure Mckenzie MORALES MD Work Phone: [facility] [place] Start: 03-20-2013 End: 03-20-2013 Results Review Mckenzie [facility]ORALES MD [facility] Start: 03-17-2013 End: 03-17-2013 Patient encounter procedure Mckenzie MORALES MD Work Phone: [facility] [place] Start: 02-05-2011 End: 02-05-2011 Patient encounter procedure Mckenzie MORALES MD Work Phone: [facility] [facility] [employer] [facility] [place] Start: 10-23-2010 End: 10-23-2010 Medication Refill/Order Mckenzie MORALES MD Work Phone: [facility] [employer] Procedures Date Procedure Procedure Detail Performing Clinician Start: 07-18-2023 End: 07-18-2023 No Known Past Surgical History Mckenzie MORALES MD Work Phone: Start: 07-17-2023 End: 07-17-2023 ablation for afib Mckenzie MORALES MD Work Phone: Start: 07-01-2023 End: 07-01-2023 Prostate specific antigen measurement Mckenzie MORALES MD Work Phone: Plan of Treatment Date Care Activity Detail Author Start: 02-12-2024 [facility] visit, estab pt Medical; ESTABLISHED PATIENT ROUTINE VISIT - [employer] ([place]) Start: 12-Feb-2024 16:00 MD Mckenzie MORALES Appointment Request [employer]. Start: 10-15-2023 [facility] visit, estab pt Medical; ESTABLISHED PATIENT ROUTINE VISIT - needed this late [employer] ([place]) Start: 15-Oct-2023 16:15 MD Mckenzie MORALES Appointment Request [employer] ([place]) Start: 07-31-2021 Assay of iron IRON (84520) S tart: 31-Jul-2021 18:59 Request [facility] [place].; [facility] Start: 07-31-2021 Basic metabolic pane l calcium total BMP (65528) Start: 31-Jul-2021 18:59 Request [facility] [place].; [facility] Start: 04-05-2021 Patient Education [facility] [place].; [facility]. Start: 03-04-2020 Assay of prostate specific antigen total PSA (PROSTATE SPECIFIC ANTIGEN) (23246) Start: 04-Mar-2020 14:47 Request [employer] [facility] [place]. Start: 01-08-2019 Patient Education HYPERTENSION Indication: Hypertension goal BP (blood pressure) < 130/80 Start: 08-Jan-2019 Instruction Type: Patient Education [employer]; [employer] [facility] [place]. Start: 12-09-2017 End: 12-09-2017 Excision nail matrix permanent removal EXCISION, TOENAIL, INGROWN (36027) Date: 09-Dec-2017 [facility] [place]; [facility] [place]. Start: 12-09-2017 Patient Education INGROWING TO ENAIL Indication: Ingrown right big toenail Start: 09-Dec-2017 Instruction Type: Patient Education [employer]; [employer] [facility] [place]. Start: 10-10-2017 Patient Education TINEA CRURIS Indication: Tinea cruris Start: 10-Oct-2017 Instruction Type: Patient Education [employer].; [employer] [facility] [place]. Start: 09-13-2016 Patient Education HYPERTENSION Indication: Hypertension goal BP (blood pressure) < 130/80 Start: 13-Sep-2016 Instruction Type: Patient Education [employer].; [employer] [facility] [place]. Start: 07-03-2016 Patient Education UTI - MEN In dication: Urinary tract infection with hematuria, site unspecified Start: 03-Jul-2016 Instruction Type: Patient Education [facility]. Start: 07-03-2016 Culture bacterial quanttative colony count urine URINE LEV CULTURE-GRACE COL COUNT (88727) Start: 03-Jul-2016 13:56 Request [facility].; [facility]. Start: 02-20-2016 Patient Education HYPERTENSION Indication: Hypertension goal BP (blood pressure) < 130/80 Start: 20-Feb-2016 Instruction Type: Patient Education [facility] [employer].; [facility] [place]. Start: 11-17-2015 Patient Education HYPERTENSION Indication: Hypertension goal BP (blood pressure) < 130/80 Start: 17-Nov-2015 Instruction Type: Patient Education [facility] [employer].; [facility] Invoiceable. Start: 10-27-2015 Patient Education HYPERTENSION Indication: Hypertension goal BP (blood pressure) < 130/80 Start: 27-Oct-2015 Instruction Type: Patient Education [facility] [employer]; [facility] [facility]. Start: 10-20-2015 Patient Education HYPERTENSION Indication: Hypertension goal BP (blood pressure) < 130/80 Start: 20-Oct-2015 Instruction Type: Patient Education [facility] [employer]; [facility] [facility]. Start: 03-17-2013 Patient Education HYPERTENSION Indication: Hypertension goal BP (blood pressure) < 130/80 Start: 17-Mar-2013 Instruction Type: Patient Education [facility]; [facility] [employer]. Work Phone: Immunizations Immunization Date Immunization Notes Care Provider [facility] 08-21-2022 influenza virus vaccine, unspecified formulation Mckenzie MORALES MD Work Phone: [facility] [facility]; [facility] Payers Date Payer Category Payer Unknown [id number] 1965 Unknown [id number] [id number] [id number] 1966 Unknown [id number] 2.16.8 [id number] 1966 Unknown [id number] 2.16.8 [id number] 1966 Unknown [id number] 2.16.8 [id number] 1966 Unknown [id number] 2.16.8 [id number] 1966 Unknown [id number] 2.16.8 [id number] 1966 Unknown [id number] 2.16.8 [id number] 1966 Unknown [id number] 2.16.84 [id number] 1965 Unknown [id number] 2.16.[id number] [facility] Social History Date Type Detail Facility Start: 02-20-2021 Tobacco smoking status Ex-smoker (fi nding) [facility] Functional Status Date Assessment Result Facility 07-18-2023 Functional Status Repositions self [facility] 07-17-2023 Functional Status Evening Snack Percent 1 00 [facility] 07-17-2023 Functional Status [facility] 07-17-2023 Functional Status [facility] 07-17-2023 Functional Status Room check performed [facility] 07-17-2023 Functional Status [facility] 04-01-2023 Functional Status Identified as high risk, Fall ID band on, Room located near nursing station, Bed alert on, Door open, Bathroom light on, Non-Slip footwear [facility] 04-01-2023 Functional Status [facility] 04-01-2023 Functional Status [facility] 04-01-2023 Functional Status [facility] 04-01-2023 Functional Status [facility] 03-31-2023 Functional Status Patient refused [facility] 03-31-2023 Functional Status Activity Assistance Ind ependent [facility] 03-31-2023 [facility]23 Functional Status Breakfast Percent 100 A [facility] 03-29-2023 Functional Status Ambulation in Room [facility] 03-29-2023 [facility] Mental Status Date Assessment Result Facility 07-18-2023 Mental Status Oriented x 4 [facility] 07-17-2023 Mental Status [facility] 07-17-2023 Mental Status [facility] 07-17-2023 Mental Status [facility] 04-01-2023 Mental Status Oriented x 4 [facility] 04-01-2023 Mental Status [facility] 04-01-2023 Mental Status [facility] Clinical Notes 03-19-2023 to 07-18-2023 Note Date & Type Note Facility 07-18-2023 Hospital Discharge instructions Patient Education 07/18/2023 08:06:38 3-- EP Study/Ablation (06/2018) (CUSTOM) ELECTROPHYSIOLOGY STUDY/ABLATION Discharge Instructions DIET INSTRUCTIONS Resume diet as prior to procedure ACTIVITIES Do not drive FOR 24 HOURS No heavy lifting GREATER THAN 25 POUNDS or pushing or straining FOR 48 hours BATHING/SHOWERING May tub bathe in 48 hours Do not sit in hot tub, whirlpool, or swim for 48 hours May shower today WOUND CARE You may go home with a Band-Aid over your procedure site. Keep this Band-Aid on for the next 24 hours and then remove it leaving the site open to air. Some degree of bruising and tenderness is normal around the procedure site. It will take a while for any bruising to completely resolve. Keep your site clean and dry. You need to report the following to your photofinishing laboratory worker: Any draining or oozing from the site Any swelling at the site Any increased pain or tenderness at the site Any numbness in your leg where the procedure was done Any sign of infection WATCH FOR SIGNS OF INFECTION: Elevated temperature above 100.5 Redness or swelling Increased pain Foul odor or drainage. If you have any questions, please call your doctor at the number listed on your follow up instructions. Follow all instructions given to you by your physician. Document Released: 09/16/2006 Document Revised: 09/02/2013 Document Reviewed: 09/17/2014 ExitCare Patient Information 2015 [employer], [employer]. This information is not intended to replace advice given to you by your health care provider. Make sure you discuss any questions you have with your health care provider. Follow Up Care 05/28/2023 15:59:27 With:KWESI CALDWELL Address: [address] [place] [address]- When:08/19/2023 14:00:00 [facility] 07-18-2023 Summary of episode note Discharge Instructions Thank you for allowing [facility] to assist you with your healthcare needs. The following is important discharge information regarding your hospital visit. Your Care Team CHINA MORALES MD What to do next Scheduled Follow-Up Appointments Appointment Type When With Where Contact InformationCV OV 08/19/2023 02:00 PM EST KWESI CALDWELL [facility] Follow Up Appointments Follow Up with KWESI CALDWELL When 08/19/2023 02:00 PM EST Where: [address] [place] [address]- The Following Activity and Diet Have Been Ordered for You Discharge Activity - Ordered -- Lifting Restricted less than 25 pounds, No lifting over 25 pounds for 48 hours. May shower. No tub bath or pool for 48 hours., 07/18/23 6:57:00 EDT Discharge Diet - Ordered -- No changes were made to your diet during your hospital stay. Please resume your pre hospitalization diet on discharge., 07/18/23 6:57:00 EDT Allergies lisinopril (cough) Medications Please ask your primary doctor or pharmacist before taking any other medication not listed, including over the counter drugs, herbal medications, vitamins and or supplements as they may interact with your home medications. What How Much When Instructions Last Dose New colchicine (colchicine 0.6 mg oral tablet) 1 tab(s) by mouth Two (2) times a day Duration: 7 Days Pickup at [facility] 0800 New naproxen (Aleve 220 mg oral tablet) 2 tab(s) by mouth Twice daily with meals Duration: 14 Days Refills: 1 Pickup at [facility] Unchanged apixaban (apixaban 5 mg oral tablet) 1 tab(s) by mouth Two (2) times a day RESUME SATURDAY EVENING Unchanged dofetilide (Tikosyn 250 mcg oral capsule) 1 cap by mouth Every 12 hours Unchanged spironolactone (spironolactone 25 mg oral tablet) 1 tab(s) by mouth Once a day with a meal Unchanged valsartan (valsartan 160 mg oral tablet) 0.5 tab(s) by mouth Once a day Pharmacy Information [facility]: [address] [place], [place] [id number] [phone] What How Much When Comments Stop Taking metoprolol (Metoprolol Succinate ER 25 mg oral TABLET extended release) 0.5 tab(s) by mouth Once a day TAKE ONE-HALF TABLET BY MOUTH EVERY DAY Please take this list to your next doctor s visit. Bring all medications you take, including over the counter medications, herbals and other supplements with you to your doctor s visit. Patients and families are reminded to discard old lists and to update any records with all medication providers or retail pharmacies. Education Materials ELECTROPHYSIOLOGY STUDY/ABLATION Discharge Instructions DIET INSTRUCTIONS Resume diet as prior to procedure ACTIVITIES Do not drive FOR 24 HOURS No heavy lifting GREATER THAN 25 POUNDS or pushing or straining FOR 48 hours BATHING/SHOWERING May tub bathe in 48 hours Do not sit in hot tub, whirlpool, or swim for 48 hours May shower today WOUND CARE You may go home with a Band-Aid over your procedure site. Keep this Band-Aid on for the next 24 hours and then remove it leaving the site open to air. Some degree of bruising and tenderness is normal around the procedure site. It will take a while for any bruising to completely resolve. Keep your site clean and dry. You need to report the following to your photofinishing laboratory worker: Any draining or oozing from the site Any swelling at the site Any increased pain or tenderness at the site Any numbness in your leg where the procedure was done Any sign of infection WATCH FOR SIGNS OF INFECTION: Elevated temperature above 100.5 Redness or swelling Increased pain Foul odor or drainage. If you have any questions, please call your doctor at the number listed on your follow up instructions. Follow all instructions given to you by your physician. Document Released: 09/16/2006 Document Revised: 09/02/2013 Document Reviewed: 09/17/2014 ExitCare Patient Information 2015 [employer]. This information is not intended to replace advice given to you by your health care provider. Make sure you discuss any questions you have with your health care provider. Additional Information VACCINATE! IT SAVES LIVES! Members of the community who have not yet received the COVID-19 vaccine and would like to receive it can visit one of [facility] vaccine clinics. There are many vaccine clinic locations within the [facility]. For locations and available times, please visit [email or web address].coronavirus.[place].gov/. It is important to note that some COVID mobile vaccine clinics are held outdoors and may be canceled in rainy or stormy conditions. To learn more about pediatric vaccinations (ages 5-11), we invite you to visit the [facility] webpage. [email or web address] To learn more about the COVID-19 vaccine, we invite you to visit the CDC website for a list of frequently asked questions.https://www.cdc.gov/cor onavirus/2019-ncov/vaccines/faq.h tml [facility] Patient Portal Access Instructions: Stay connected with your healthcare team and access your personal medical information anytime with the [facility]atev Patient Portal. Please follow the directions below to create your flatev account: 1.Access the email account you provided upon registration to the hospital/physician office.2.Look for an invitation email from [facility].3.Open the email and access the invitation link: Accept Invitation to flatev.4.Fill in the required smith to create your account. To access your account, visit [employer]/Donewsjudith. Click the blue button labeled Access Patient Portal and then log in with the username and password that you created in the steps above. You will be able to view your test results, lab results, a summary of your visits, upcoming appointments and more. There is also a convenient messaging option where you can send secure messages to your provider. In addition, you will have the ability to download any documents or summaries to your computer and/or send the information securely to a physician. Remember that your healthcare information is confidential, so carefully consider who you will allow to register on the [facility] Patient Portal for access to your information. You can also access the [facility] Patient Portal on the [facility] loren. Simply click on Patient Portal and then log into your account. If you would like to receive a full copy of your medical records, please contact the [facility] Medical Records Department by calling [phone], Saturday through Saturday between 8 a.m. and 4:30 p.m. HOW TO SAFELY DISPOSE OF PRESCRIPTION MEDICATIONS Please use one of the following methods to safely dispose of your unused medications. 1.Use a drug disposal kit: the drug disposal pouch allows you to safely discard your old and unused drugs. Ask your nurse to give you one when you are discharged.2.Visit a local take-back location: Many local pharmacies and police departments have programs that collect old and unwanted prescription drugs. Call your local pharmacy or go to http://MaxxAthlete.Solar3D/0W0Lr7v to find one close to you.3.Make use of household items: Use cat litter or old coffee grounds to dispose medications if other options are not available. Mix your drugs with these household products, seal them in an airtight container and throw it into the garbage. Call [facility]: [phone] to be sure your drugs can be disposed of in this way. Some medicines may require a different approach.4.Never flush your medications down the toilet. IF YOU HAVE BEEN PRESCRIBED AN OPIOID FOR PAIN If you have been prescribed an opioid (such as hydrocodone, oxycodone or morphine), it is critical to understand the possible side effects and risks of opioid pain medications. Even when taken as directed, opioids can have several side effects including: Tolerance, meaning you might need to take more of a medication for the same pain relief. Nausea, vomiting and/or constipation. Sleepiness, dizziness, dry mouth, confusion, depression or itching. Physical dependence, meaning you have withdrawal symptoms when a medication is stopped, can develop within a few days. KNOW YOUR RESPONSIBILITIES It is important to know exactly how much and how often to take the opioid pain medications you are prescribed. Never take opioids in higher amounts or more often than prescribed. Do not combine opioids with alcohol or other drugs that cause drowsiness, such as benzodiazepines, also known as benzos, including diazepam and alprazolam, muscle relaxants or sleep aids. Never sell or share prescription opioids. This is illegal. Store opioids in a secure place and out of reach of others (including children, family, friends and visitors). The last page of this document has been signed and retained as a CHART COPY. Signatures Patient Education Materials 3-- EP Study/Ablation (06/2018) (CUSTOM) Medication Leaflets My discharge plan and instructions have been reviewed and explained to me and I,WENDI MORALES understand my current condition and have read and understand these discharge instructions. I have received a written copy of the plan/instructions. If I have questions, I am aware that I should contact my doctor. Patient/Technical Translator Signature: Date/Time: Relationship to Patient: ____ Witness Name/Signature: Date/Time: [facility] 07-18-2023 Note EP PROGRESS NOTEPCP: MD Andrew Patient: Wendi Morales medical record# [id number] TELEMETRY reviewed: Normal sinus rhythm. ECG reviewed personally:(07/18 5:01a): Sinus 63 bpm, pr 197ms, qrs 100ms, QT 426ms, QTc 437ms. LABS: reviewed. WBC 7.6, hemoglobin 15.4, 204,000 platelets. Sodium 141, potassium 3.9, chloride 113, bicarb 26, glucose 110, BUN 24, creatinine 1.3. Liver function studies normal. GFR 57. Calcium 8.6. SUBJECTIVE: The patient developed some sharp chest discomfort with deep inspiration overnight. No trouble eating/swallowing. He denies any angina, dyspnea, lightheadedness, or palpitations. OBJECTIVE: 120/80, pulse 72 regular, respirations 18, afebrile. LUNGS: clear, normal respiratory excursion. COR: S1 S2, no S3 or rub. EXT: no edema, pulses 2+ bilaterally. Figure-of-8 sutures/stopcocks removed from bilateral groin cath sites, no hematoma. IMPRESSION/Recommendations: 1. s/p CRYO PVAI ablation 07/17/23 for Paroxysmal Atrial Fibrillation, CHADSVASC= 1, with palpitations. HOME TODAY. 2. Post-ablation pleuro-pericarditis with chest pain. Start Aleve bid for 2 week and colchicine bid for 1 week. 3. Unsustained Ventricular Tachycardia. 4. Cardiomyopathy (htn, arrhythmia) LVEF 47%. 5. Non-significant CAD by CATH 03/2023. 6. EM. 7. Sinus bradycardia on higher-dose antiarrhythmic therapy. normal off metoprolol. 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 Kimo Viramontes MD, [facility] pager [phone] Digitally Signed by KIMO VIRAMONTES MD on 07/18/2023 07:12 AM [facility] 07-18-2023 Physician Discharge summary DISCHARGE SUMMARY NOTEPCP: MD Andrew Patient: Wendi Morales medical record# [id number] date of Admission: 07/17/23date of Discharge: 07/18/23 Discharge diagnoses: 1. Paroxysmal Atrial Fibrillation, CHADSVASC= 1, with palpitations. 2. Post-ablation pleuro-pericarditis with chest pain. 3. Unsustained Ventricular Tachycardia. 4. Cardiomyopathy (htn, arrhythmia) LVEF 47%. 5. Non-significant CAD by CATH 03/2023. 6. EM. 7. Sinus bradycardia on higher-dose antiarrhythmic therapy. 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 Principal procedures performed: 1. CRYO Pulmonary Vein Antral Isolation (PVAI) ablation. 2. Electrophysiology Study with 3D mapping (st shireen). 3. Transeptal puncture for left atrial access. 4. Intracardiac Echocardiography and Vascular Ultrasound. 5. General Anesthesia & iv anticoagulation. Discharge medications: 1. Eliquis 5 mg twice daily. 2. Aleve 220 mg tablet, 2 tablets twice daily for 14 days. 3. Colchicine 0.6 mg twice daily for 7 days. 4. Dofetilide 250 mcg every 12 hours. 5. Valsartan 160 mg tablet, 1/2 tablet daily. 6. Spironolactone 25 mg daily. Discharge instructions: Resume prior diet. No lifting over 25 pounds for 48 hours. May shower. No tub bath or pool for 48 hours. Follow up 08/19/23 2pm with Physician Machine Tool Operator, Yane Caldwell. Summary: 58-year-old male presenting for cryo ablative therapies for recurrent paroxysmal atrial fibrillation with debilitating symptoms. Please see history and physical for further details. Hospital course: The patient underwent successful CRYO PVAI with exit block all pulmonary veins. Post procedure monitoring and EKG showed normal sinus rhythm. He has some pleuropericardial pain that will be treated with Aleve and colchicine. He is swallowing well and eating and ambulating at the time of discharge. His cath sites are healing well with no hematoma. He will follow-up through our office in several weeks to review rhythm and symptoms, at which time his Eliquis will be discontinued. A repeat evaluation of LV function in several months is recommended. Kimo Viramontes MD, [facility] pager [phone] Digitally Signed by KIMO VIRAMONTES MD on 07/18/2023 07:05 AM [facility] 07-18-2023 Note SINUS RHYTHM Electronic Signature: FLORINA CHESTER MD 07/18/2023 11:23:54 [facility] HISTORY & PHYSICALPCP: Jodi terry MD Patient: Wendi Morales medical record# [id number] date of Admission: 07/17/23 CC: Palpitations and atrial fibrillation. HPI: 58 yr old male patient presenting for CRYO Pulmonary Vein Antral Isolation (PVAI) ablation for Paroxysmal Atrial Fibrillation, CHADSVASC= 1, with symptoms of palpitations and believed arrhythmia-mediated cardiomyopathy. Cardiac Catheterization 03/2023 showed mild CAD LVEF 47%. Sinus bradycardia develops on higher-dose antiarrhythmic therapy. He denies any angina, dyspnea, lightheadedness, or swelling. He has been on therapeutic anticoagulation for the last several weeks. ALLERGIES: lisinopril (cough). HOME MEDICATIONS: 1. Eliquis 5mg BID, last dose 24 hours prior to procedure. 2. Tikosyn 250mcg q12h. 3. Metoprolol succinate 25mg tablet, 1/2 tablet qAM. 4. Valsartan 160mg tablet, 1/2 tablet qAM. 5. Spironolactone 25mg qAM. PMH: 1. Paroxysmal Atrial Fibrillation, CHADSVASC= 1, with palpitations. 2. Unsustained Ventricular Tachycardia. 3. Cardiomyopathy (htn, arrhythmia) LVEF 47%. 4. Non-significant CAD by CATH 03/2023. 5. EM. 6. Sinus bradycardia on higher-dose antiarrhythmic therapy. SHx: Reformed tobacco use, no alcohol consumption, occasional caffeine intake. FHx: Father had HTN, Grandparent had asthma/dm/chf. RoS: Positives per HPI, remainder reviewed and negative. PE: 140/80 P58 r18 Ht 188cm Wt 123kg bmi 34.8 CONSTITUTIONAL: Well-developed, well nourished, in no acute distress. HEAD: Normocephalic, atraumatic. EENT: Pupils round, reactive to light and accommodation. Extraoccular muscles intact. No ENT exudates. NECK: No jugular venous distention, no carotid bruits, no thyroid masses. LUNGS: Clear, normal respiratory excursion. COR: Apical impulse not displaced. single S1 S2, no S3, S4, rub, click or murmur. ABD: Bowel sounds present, soft, nontender, no masses or pulsations. EXTREMITIES: Pulses 2+ bilaterally, no edema. SKIN: No rash or chronic skin infection. LYMPH: No lymphadenopathy noted. NEURO: Alert and oriented to person place time, no gross focal motor deficit. IMPRESSION: 1. Paroxysmal Atrial Fibrillation, CHADSVASC= 1, with palpitations. 2. Unsustained Ventricular Tachycardia. 3. Cardiomyopathy (htn, arrhythmia) LVEF 47%. 4. Non-significant CAD by CATH 03/2023. 5. EM. 6. Sinus bradycardia on higher-dose antiarrhythmic therapy. PLAN: CRYO PVAI ablation. We will perform EPS with 3D mapping (st shireen), transeptal puncture for left atrial access guided by Intracardiac Echocardiography and Vascular Ultrasound, using general anesthesia and iv anticoagulation. Findings reviewed with patient including risks of diagnoses. Proposed procedure and risks explained. Questions answered. He agrees to proceed. Post-procedure he will follow up 08/19/23 2pm with physician pharmacy technician assistant, Yane Caldwell. Kimo Viramontes MD, [facility] pager [phone] Future Appointments Appointment Date:08/19/2023 02:00:00 PM Scheduled Provider:KWESI CALDWELL Location:[facility] Appointment Type:[facility] 10-18-2023 Anesthesiology Progress note Patient: WENDI MORALES Age: 58 years Sex: Male : 1965 Associated Diagnoses: None Author: NANCY CARPENTER MD Postoperative Information Post Operative Info: Post op day: POD0. Patient location: same day surgery. Assessment Postanesthesia assessment Vitals: Vital signs from flowsheet : Vital Signs 07/17/2023 12:25 EDT Heart Rate Monitored 57 bpm LOW Respiratory Rate 14 br/min Systolic Blood Pressure Non-Invasive 132 mmHg Diastolic Blood Pressure Non-Invasive 84 mmHg 07/17/2023 12:05 EDT Heart Rate Monitored 57 bpm LOW Respiratory Rate 14 br/min Systolic Blood Pressure Non-Invasive 116 mmHg Diastolic Blood Pressure Non-Invasive 80 mmHg 07/17/2023 12:00 EDT Heart Rate Monitored 56 bpm LOW Respiratory Rate 16 br/min Systolic Blood Pressure Non-Invasive 121 mmHg Diastolic Blood Pressure Non-Invasive 76 mmHg 07/17/2023 11:55 EDT Heart Rate Monitored 57 bpm LOW Respiratory Rate 20 br/min Systolic Blood Pressure Non-Invasive 124 mmHg Diastolic Blood Pressure Non-Invasive 82 mmHg 07/17/2023 11:50 EDT Heart Rate Monitored 58 bpm LOW Respiratory Rate 12 br/min LOW Systolic Blood Pressure Non-Invasive 119 mmHg Diastolic Blood Pressure Non-Invasive 81 mmHg 07/17/2023 11:45 EDT Heart Rate Monitored 56 bpm LOW Respiratory Rate 20 br/min Systolic Blood Pressure Non-Invasive 120 mmHg Diastolic Blood Pressure Non-Invasive 78 mmHg Systolic Blood Pressure Invasive 137 mmHg Diastolic Blood Pressure Invasive 78 mmHg 07/17/2023 11:40 EDT Heart Rate Monitored 57 bpm LOW Respiratory Rate 20 br/min Systolic Blood Pressure Non-Invasive 123 mmHg Diastolic Blood Pressure Non-Invasive 82 mmHg 07/17/2023 11:35 EDT Heart Rate Monitored 56 bpm LOW Respiratory Rate 17 br/min Systolic Blood Pressure Non-Invasive 116 mmHg Diastolic Blood Pressure Non-Invasive 78 mmHg Systolic Blood Pressure Invasive 144 mmHg HI Diastolic Blood Pressure Invasive 82 mmHg 07/17/2023 11:30 EDT Heart Rate Monitored 58 bpm LOW Respiratory Rate 17 br/min Systolic Blood Pressure Non-Invasive 135 mmHg Diastolic Blood Pressure Non-Invasive 83 mmHg Systolic Blood Pressure Invasive 146 mmHg HI Diastolic Blood Pressure Invasive 83 mmHg 07/17/2023 11:25 EDT Heart Rate Monitored 60 bpm Respiratory Rate 18 br/min Systolic Blood Pressure Non-Invasive 105 mmHg Diastolic Blood Pressure Non-Invasive 68 mmHg Systolic Blood Pressure Invasive 142 mmHg HI Diastolic Blood Pressure Invasive 82 mmHg 07/17/2023 11:20 EDT Heart Rate Monitored 63 bpm Respiratory Rate 18 br/min Systolic Blood Pressure Invasive 153 mmHg HI Diastolic Blood Pressure Invasive 86 mmHg 07/17/2023 11:15 EDT Heart Rate Monitored 60 bpm Respiratory Rate 18 br/min Systolic Blood Pressure Non-Invasive 136 mmHg Diastolic Blood Pressure Non-Invasive 75 mmHg Systolic Blood Pressure Invasive 137 mmHg Diastolic Blood Pressure Invasive 80 mmHg 07/17/2023 11:10 EDT Heart Rate Monitored 61 bpm Respiratory Rate 18 br/min Systolic Blood Pressure Non-Invasive 104 mmHg Diastolic Blood Pressure Non-Invasive 60 mmHg Systolic Blood Pressure Invasive 137 mmHg Diastolic Blood Pressure Invasive 80 mmHg 07/17/2023 11:05 EDT Temperature Temporal Artery 36.2 DegC Heart Rate Monitored 56 bpm LOW Respiratory Rate 17 br/min Systolic Blood Pressure Non-Invasive 110 mmHg Diastolic Blood Pressure Non-Invasive 62 mmHg 07/17/2023 11:00 EDT Respiratory Rate - Anes 0 br/min br/min 07/17/2023 10:55 EDT Heart Rate Monitored 58 bpm bpm Respiratory Rate - Anes 14 br/min br/min 07/17/2023 10:50 EDT Heart Rate Monitored 61 bpm bpm Respiratory Rate - Anes 0 br/min br/min 07/17/2023 10:45 EDT Heart Rate Monitored 63 bpm bpm Respiratory Rate - Anes 38 br/min br/min 07/17/2023 10:40 EDT Heart Rate Monitored 65 bpm bpm Respiratory Rate - Anes 7 br/min br/min 07/17/2023 10:35 EDT Temperature (Route Not Specified) 35.29 DegC DegC Heart Rate Monitored 86 bpm bpm Respiratory Rate - Anes 12 br/min br/min 07/17/2023 10:30 EDT Temperature (Route Not Specified) 35.27 DegC DegC Heart Rate Monitored 70 bpm bpm Respiratory Rate - Anes 12 br/min br/min 07/17/2023 10:25 EDT Temperature (Route Not Specified) 35.24 DegC DegC Heart Rate Monitored 64 bpm bpm Respiratory Rate - Anes 12 br/min br/min 07/17/2023 10:20 EDT Temperature (Route Not Specified) 35.25 DegC DegC Heart Rate Monitored 63 bpm bpm Respiratory Rate - Anes 12 br/min br/min 07/17/2023 10:15 EDT Temperature (Route Not Specified) 35.24 DegC DegC Heart Rate Monitored 61 bpm bpm Respiratory Rate - Anes 12 br/min br/min 07/17/2023 10:10 EDT Temperature (Route Not Specified) 35.25 DegC DegC Heart Rate Monitored 64 bpm bpm Respiratory Rate - Anes 12 br/min br/min 07/17/2023 10:08 EDT Systolic Blood Pressure Non-Invasive 110 mmHg mmHg Diastolic Blood Pressure Non-Invasive 68 mmHg mmHg 07/17/2023 10:05 EDT Temperature (Route Not Specified) 35.34 DegC DegC Heart Rate Monitored 82 bpm bpm Respiratory Rate - Anes 27 br/min br/min 07/17/2023 10:00 EDT Temperature (Route Not Specified) 35.3 DegC DegC Heart Rate Monitored 62 bpm bpm Respiratory Rate - Anes 12 br/min br/min 07/17/2023 9:55 EDT Temperature (Route Not Specified) 35.35 DegC DegC Heart Rate Monitored 69 bpm bpm Respiratory Rate - Anes 16 br/min br/min 07/17/2023 9:50 EDT Temperature (Route Not Specified) 35.37 DegC DegC Heart Rate Monitored 62 bpm bpm Respiratory Rate - Anes 12 br/min br/min 07/17/2023 9:45 EDT Temperature (Route Not Specified) 35.43 DegC DegC Heart Rate Monitored 66 bpm bpm Respiratory Rate - Anes 12 br/min br/min 07/17/2023 9:40 EDT Temperature (Route Not Specified) 35.42 DegC DegC Heart Rate Monitored 58 bpm bpm Respiratory Rate - Anes 12 br/min br/min 07/17/2023 9:35 EDT Temperature (Route Not Specified) 35.41 DegC DegC Heart Rate Monitored 115 bpm bpm Respiratory Rate - Anes 30 br/min br/min 07/17/2023 9:30 EDT Temperature (Route Not Specified) 35.01 DegC DegC Heart Rate Monitored 93 bpm bpm Respiratory Rate - Anes 16 br/min br/min 07/17/2023 9:25 EDT Temperature (Route Not Specified) 32.64 DegC DegC Heart Rate Monitored 53 bpm bpm Respiratory Rate - Anes 12 br/min br/min 07/17/2023 9:20 EDT Temperature (Route Not Specified) 34.76 DegC DegC Heart Rate Monitored 53 bpm bpm Respiratory Rate - Anes 12 br/min br/min 07/17/2023 9:15 EDT Temperature (Route Not Specified) 35.35 DegC DegC Heart Rate Monitored 53 bpm bpm Respiratory Rate - Anes 12 br/min br/min 07/17/2023 9:10 EDT Temperature (Route Not Specified) 35.95 DegC DegC Heart Rate Monitored 51 bpm bpm Respiratory Rate - Anes 12 br/min br/min 07/17/2023 9:09 EDT Systolic Blood Pressure Non-Invasive 107 mmHg mmHg Diastolic Blood Pressure Non-Invasive 57 mmHg mmHg 07/17/2023 9:05 EDT Temperature (Route Not Specified) 35.95 DegC DegC Heart Rate Monitored 58 bpm bpm Respiratory Rate - Anes 12 br/min br/min 07/17/2023 9:00 EDT Temperature (Route Not Specified) 35.95 DegC DegC Heart Rate Monitored 53 bpm bpm Respiratory Rate - Anes 12 br/min br/min 07/17/2023 8:55 EDT Temperature (Route Not Specified) 35.95 DegC DegC Heart Rate Monitored 52 bpm bpm Respiratory Rate - Anes 12 br/min br/min 07/17/2023 8:50 EDT Temperature (Route Not Specified) 35.96 DegC DegC Heart Rate Monitored 53 bpm bpm Respiratory Rate - Anes 12 br/min br/min 07/17/2023 8:45 EDT Temperature (Route Not Specified) 36 DegC DegC Heart Rate Monitored 54 bpm bpm Respiratory Rate - Anes 12 br/min br/min 07/17/2023 8:40 EDT Temperature (Route Not Specified) 35.98 DegC DegC Heart Rate Monitored 58 bpm bpm Respiratory Rate - Anes 12 br/min br/min 07/17/2023 8:35 EDT Temperature (Route Not Specified) 35.98 DegC DegC Heart Rate Monitored 68 bpm bpm Respiratory Rate - Anes 10 br/min br/min 07/17/2023 8:30 EDT Temperature (Route Not Specified) 35.96 DegC DegC Heart Rate Monitored 57 bpm bpm Respiratory Rate - Anes 10 br/min br/min 07/17/2023 8:25 EDT Temperature (Route Not Specified) 35.98 DegC DegC Heart Rate Monitored 60 bpm bpm Respiratory Rate - Anes 10 br/min br/min 07/17/2023 8:20 EDT Temperature (Route Not Specified) 36.02 DegC DegC Heart Rate Monitored 62 bpm bpm Respiratory Rate - Anes 10 br/min br/min 07/17/2023 8:15 EDT Temperature (Route Not Specified) 36.07 DegC DegC Heart Rate Monitored 65 bpm bpm Respiratory Rate - Anes 10 br/min br/min 07/17/2023 8:10 EDT Temperature (Route Not Specified) 34.43 DegC DegC Heart Rate Monitored 67 bpm bpm Respiratory Rate - Anes 7 br/min br/min 07/17/2023 8:09 EDT Systolic Blood Pressure Non-Invasive 137 mmHg mmHg Diastolic Blood Pressure Non-Invasive 95 mmHg mmHg 07/17/2023 8:05 EDT Heart Rate Monitored 71 bpm bpm Respiratory Rate - Anes 7 br/min br/min Systolic Blood Pressure Non-Invasive 132 mmHg mmHg Diastolic Blood Pressure Non-Invasive 108 mmHg mmHg 07/17/2023 8:02 EDT Systolic Blood Pressure Non-Invasive 118 mmHg mmHg Diastolic Blood Pressure Non-Invasive 84 mmHg mmHg 07/17/2023 8:00 EDT Heart Rate Monitored 83 bpm bpm Respiratory Rate - Anes 9 br/min br/min 07/17/2023 7:55 EDT Respiratory Rate - Anes 0 br/min br/min 07/17/2023 7:50 EDT Respiratory Rate - Anes 0 br/min br/min 07/17/2023 6:10 EDT Temperature Oral 36.8 DegC Peripheral Pulse Rate 67 bpm Respiratory Rate 18 br/min Systolic Blood Pressure Non-Invasive 156 mmHg HI Diastolic Blood Pressure Non-Invasive 94 mmHg HI , Oxygen Therapy : Oxygen Therapy & Oxygenation Information 07/17/2023 12:25 EDT Oxygen Therapy Room air Oxygen Saturation 93 % 07/17/2023 12:05 EDT Oxygen Therapy Room air Oxygen Saturation 95 % 07/17/2023 12:00 EDT Oxygen Therapy Room air Oxygen Saturation 95 % 07/17/2023 11:55 EDT Oxygen Therapy Room air Oxygen Saturation 94 % 07/17/2023 11:50 EDT Oxygen Therapy Room air Oxygen Saturation 95 % 07/17/2023 11:45 EDT Oxygen Therapy Room air Oxygen Saturation 95 % 07/17/2023 11:40 EDT Oxygen Therapy Nasal cannula 0L-6L Oxygen Saturation 95 % Oxygen Flow Rate 2 07/17/2023 11:35 EDT Oxygen Therapy Nasal cannula 0L-6L Oxygen Saturation 94 % Oxygen Flow Rate 2 07/17/2023 11:30 EDT Oxygen Therapy Nasal cannula 0L-6L Oxygen Saturation 95 % Oxygen Flow Rate 3 07/17/2023 11:25 EDT Oxygen Therapy Nasal cannula 0L-6L Oxygen Saturation 95 % Oxygen Flow Rate 3 07/17/2023 11:20 EDT Oxygen Therapy Room air Oxygen Saturation 95 % 07/17/2023 11:15 EDT Oxygen Therapy Simple mask Oxygen Saturation 99 % Oxygen Flow Rate 5 07/17/2023 11:10 EDT Oxygen Therapy Simple mask Oxygen Saturation 98 % Oxygen Flow Rate 6 07/17/2023 11:05 EDT Oxygen Therapy Simple mask Oxygen Saturation 97 % Oxygen Flow Rate 6 07/17/2023 10:55 EDT Oxygen Saturation 100 % % 07/17/2023 10:50 EDT Oxygen Saturation 99 % % 07/17/2023 10:45 EDT Oxygen Saturation 99 % % 07/17/2023 10:40 EDT Oxygen Saturation 99 % % 07/17/2023 10:35 EDT Oxygen Saturation 99 % % 07/17/2023 10:30 EDT Oxygen Saturation 99 % % 07/17/2023 10:25 EDT Oxygen Saturation 99 % % 07/17/2023 10:20 EDT Oxygen Saturation 99 % % 07/17/2023 10:15 EDT Oxygen Saturation 99 % % 07/17/2023 10:10 EDT Oxygen Saturation 99 % % 07/17/2023 10:05 EDT Oxygen Saturation 99 % % 07/17/2023 10:00 EDT Oxygen Saturation 100 % % 07/17/2023 9:55 EDT Oxygen Saturation 99 % % 07/17/2023 9:50 EDT Oxygen Saturation 100 % % 07/17/2023 9:45 EDT Oxygen Saturation 99 % % 07/17/2023 9:40 EDT Oxygen Saturation 99 % % 07/17/2023 9:35 EDT Oxygen Saturation 100 % % 07/17/2023 9:30 EDT Oxygen Saturation 100 % % 07/17/2023 9:25 EDT Oxygen Saturation 100 % % 07/17/2023 9:20 EDT Oxygen Saturation 100 % % 07/17/2023 9:15 EDT Oxygen Saturation 100 % % 07/17/2023 9:10 EDT Oxygen Saturation 100 % % 07/17/2023 9:05 EDT Oxygen Saturation 100 % % 07/17/2023 9:00 EDT Oxygen Saturation 100 % % 07/17/2023 8:55 EDT Oxygen Saturation 100 % % 07/17/2023 8:50 EDT Oxygen Saturation 100 % % 07/17/2023 8:45 EDT Oxygen Saturation 100 % % 07/17/2023 8:40 EDT Oxygen Saturation 100 % % 07/17/2023 8:35 EDT Oxygen Saturation 100 % % 07/17/2023 8:30 EDT Oxygen Saturation 100 % % 07/17/2023 8:25 EDT Oxygen Saturation 100 % % 07/17/2023 8:20 EDT Oxygen Saturation 100 % % 07/17/2023 8:15 EDT Oxygen Saturation 100 % % 07/17/2023 8:10 EDT Oxygen Saturation 100 % % 07/17/2023 8:05 EDT Oxygen Saturation 100 % % 07/17/2023 8:00 EDT Oxygen Saturation 98 % % 07/17/2023 6:10 EDT Oxygen Therapy Room air Oxygen Saturation 95 % . Mental status: at preoperative baseline. Respiratory function: respirations are non-labored, Stable. Respiratory support: none. CV function: Stable. Cardiovascular support: none. Pain: Satisfactory. Nausea status: Satisfactory. Postoperative hydration status: within normal limits. Notes: Patient is sufficiently recovered from anesthesia to participate in the evaluation. No follow-up care needed. No complications post-anesthesia.. Digitally Signed by NANCY CARPENTER MD on 07/17/2023 12:28 PM [id number] Note ELECTROPHYSIOLOGY STUDY & ABLATION NOTEPCP: MD Andrew Patient: Wendi Morales medical record# [id number] date of Procedure: 07/17/23 PROCEDURE: 1. CRYO Pulmonary Vein Antral Isolation (PVAI) ablation. 2. Electrophysiology Study with 3D mapping (st shireen). 3. Transeptal puncture for left atrial access. 4. Intracardiac Echocardiography and Vascular Ultrasound. 5. General Anesthesia & iv anticoagulation. INDICATION: Paroxysmal Atrial Fibrillation, CHADSVASC= 1, with palpitations. Medications: Eliquis, Tikosyn, metoprolol. SUMMARY: 1. Successful CRYO PVAI ablation with exit block all pulmonary veins. The RSPV has a small focus anterior that still activates atrium, but all regions around it do not. 2. Presenting rhythm sinus bradycardia cl 1146ms, pr 191ms, qrs 117ms, QT 444ms. 3. Esophagus courses closer to left pulmonary veins, but did not require titration of energy. Left common pulmonary vein, two Rt pulmonary veins. 4. Sinus Node dysfunction: Junctional bradycardia sometimes observed. SNRT 1400ms, cSNRT 254ms. 5. Normal Atrial refractoriness: AERP 600/240. 6. Normal AV Node function: AH 82ms, AVN Wenckebach 350ms, VA Wenckebach 450ms, AVNERP 600/<320ms, single AVN physiology. 7. Abnormal HIS-purkinje function: HV 77ms. 8. Normal Ventricular refractoriness: VERPrva 600/280, 400/270. RECOMMENDATIONS: Observe overnight. Bedrest 4 hours with legs still, then may ambulate. Discontinue metoprolol. Resume Tikosyn. Resume Eliquis evening. Will remove Figure-of-8 sutures/stopcocks in am. Resumeprior diet. No lifting over 25 pounds for 48 hours. May shower. No tub bath or pool for 48 hours. Follow up 08/19/23 2pm with Physician Machine Tool Operator, Yane Caldwell. Procedure: The patient was brought to EP LAB #1 in the fasting well-hydrated state and prepped and draped in the usual sterile fashion. The 3D mapping patches were applied on the thorax prior to draping the patient. General anesthesia was administered by anesthesia personnel present throughout the case, during which time an esophageal thermistor probe was placed for localizing the esophagus and for monitoring temperature during ablation, regularly repositioning the probe to a site closest to the ablation catheter. Using modified Seldinger technique and Vascular Ultrasound, one biport venous sheath and additionalvenous sheath were placed in the left femoral vein, through which were advanced diagnostic EP catheters to the HIS and RV (and later RA) locations, and an intracardiac echocardiography (ICE) catheterunder fluoroscopic guidance into the right atrium, and a baseline ICE study was performed. Baseline ICE demonstrated normal LA/RA. Left and right ventricular size and function were normal. Mitral, tricuspid, pulmonic, and aortic valve leaflets were grossly normal in appearance with normal exam. There were two left pulmonary veins WITH A COMMON ANTRUM, and two right pulmonary veins. Therewas no intracardiac mass or thrombus. There was no pericardial effusion. Subsequently, the ICE catheter was positioned on a plane to demonstrate the intraatrial septum and left pulmonary vein. Using modified Seldinger technique and Vascular Ultrasound, a long guidewire was placed into the right femoral vein up to the the SVC and the patient was administered iv heparin bolus and drip to a goal ACT of 300-400s. Over the guidewire was placed a OxyBand Technologiestronic steerable Transeptal sheath mounted on an ACQ-Cross transeptal needle/dilator. The guidewire was retracted into the sheath and With the fluoroscopy positioned in the REBECA position, the sheath was gradually withdrawn back into the RA until the tip tented against the intraatrial septum as verified by the ICE catheter. T ranseptal puncture was performed verified by injecting saline thru the needle assembly and visualizing in the LA by ICE, as well as by passing the guidewire thru the needle/dilator assembly into the left pulmonary vein.The sheath was advanced while the guidewire and needle/dilator were removed resulting in one transseptal puncture and one sheath exiting in the left atrium. The sheath was carefully flushed and connected to heparinized saline solution. Through that sheath was advanced the PoyntFront Advance CRYO-balloon and Achieve mapping catheter. An electro-anatomic map The left atrium and pulmonary veins was created. Cryoablation was then performed in a sequential manner starting with the left superior pulmonary vein, left inferior pulmonaryvein, right inferior pulmonary vein, and right superior pulmonary vein. Ablation was performed during real-time analysis of the electrograms. Prior to ablating the right pulmonary veins, the HIS bundle catheter was repositioned in the SVC to pace the phrenic nerve while monitoring diaphragmatic contraction to assure no damage to the phrenic nerve during ablation. Approximately two freezes were performed on each vein. The RSPV required additional freezes. Upon completion of ablation, the mapping catheter was repositioned in each of the veins and pacing was performed to demonstrate exit block. Upon completing ablation and testing, the ablation system and transseptal sheath were removed from the left atrium with the ablation system removed from the body, and the sheath pulled back to the inferior vena cava. The HIS bundle catheter was repositioned, and programmed stimulation was performed starting with ventricular programmed stimulation, then repositioning the RV catheter into the right atrium and performing atrial programmed stimulation. At completion of testing, all catheters were removed from the body. A final ice study was performedand then this catheter was removed. The patient was recovered from anesthesia and administered IV protamine to reverse heparin effect. Local anesthesia with 1% lidocaine was administered to provide anumbing effect in the left and right femoral regions. Figure-of-8 sutures with 2-0 Vicryl were tied around the bilateral groin cath sites, secured with stopcocks. The sheaths were pulled once the ACTlevel dropped below 160 seconds, and pressure was held until adequate hemostasis was obtained. Complications: None. Specimens: None. Estimated blood loss: 10 mL. Contrast: 10mL. Kimo Viramontes MD, [facility] pager [phone] Digitally Signed by KIMO VIRAMONTES MD on 07/17/2023 11:28 AM [id number] Anesthesiology Progress note Patient: WENDI MORALES Age: 58 years Sex: Male : 1965 Associated Diagnoses: None Author: NANCY CARPENTER MD Postoperative Information Post Operative Info: Post op day: POD0. Patient location: same day surgery. Assessment Postanesthesia assessment Vitals: Vital signs from flowsheet : Vital Signs 07/17/2023 11:15 EDT Heart Rate Monitored 60 bpm Respiratory Rate 18 br/min Systolic Blood Pressure Non-Invasive 136 mmHg Diastolic Blood Pressure Non-Invasive 75 mmHg Systolic Blood Pressure Invasive 137 mmHg Diastolic Blood Pressure Invasive 80 mmHg 07/17/2023 11:10 EDT Heart Rate Monitored 61 bpm Respiratory Rate 18 br/min Systolic Blood Pressure Non-Invasive 104 mmHg Diastolic Blood Pressure Non-Invasive 60 mmHg Systolic Blood Pressure Invasive 137 mmHg Diastolic Blood Pressure Invasive 80 mmHg 07/17/2023 11:05 EDT Temperature Temporal Artery 36.2 DegC Heart Rate Monitored 56 bpm LOW Respiratory Rate 17 br/min Systolic Blood Pressure Non-Invasive 110 mmHg Diastolic Blood Pressure Non-Invasive 62 mmHg 07/17/2023 11:00 EDT Respiratory Rate - Anes 0 br/min br/min 07/17/2023 10:55 EDT Heart Rate Monitored 58 bpm bpm Respiratory Rate - Anes 14 br/min br/min 07/17/2023 10:50 EDT Heart Rate Monitored 61 bpm bpm Respiratory Rate - Anes 0 br/min br/min 07/17/2023 10:45 EDT Heart Rate Monitored 63 bpm bpm Respiratory Rate - Anes 38 br/min br/min 07/17/2023 10:40 EDT Heart Rate Monitored 65 bpm bpm Respiratory Rate - Anes 7 br/min br/min 07/17/2023 10:35 EDT Temperature (Route Not Specified) 35.29 DegC DegC Heart Rate Monitored 86 bpm bpm Respiratory Rate - Anes 12 br/min br/min 07/17/2023 10:30 EDT Temperature (Route Not Specified) 35.27 DegC DegC Heart Rate Monitored 70 bpm bpm Respiratory Rate - Anes 12 br/min br/min 07/17/2023 10:25 EDT Temperature (Route Not Specified) 35.24 DegC DegC Heart Rate Monitored 64 bpm bpm Respiratory Rate - Anes 12 br/min br/min 07/17/2023 10:20 EDT Temperature (Route Not Specified) 35.25 DegC DegC Heart Rate Monitored 63 bpm bpm Respiratory Rate - Anes 12 br/min br/min 07/17/2023 10:15 EDT Temperature (Route Not Specified) 35.24 DegC DegC Heart Rate Monitored 61 bpm bpm Respiratory Rate - Anes 12 br/min br/min 07/17/2023 10:10 EDT Temperature (Route Not Specified) 35.25 DegC DegC Heart Rate Monitored 64 bpm bpm Respiratory Rate - Anes 12 br/min br/min 07/17/2023 10:08 EDT Systolic Blood Pressure Non-Invasive 110 mmHg mmHg Diastolic Blood Pressure Non-Invasive 68 mmHg mmHg 07/17/2023 10:05 EDT Temperature (Route Not Specified) 35.34 DegC DegC Heart Rate Monitored 82 bpm bpm Respiratory Rate - Anes 27 br/min br/min 07/17/2023 10:00 EDT Temperature (Route Not Specified) 35.3 DegC DegC Heart Rate Monitored 62 bpm bpm Respiratory Rate - Anes 12 br/min br/min 07/17/2023 9:55 EDT Temperature (Route Not Specified) 35.35 DegC DegC Heart Rate Monitored 69 bpm bpm Respiratory Rate - Anes 16 br/min br/min 07/17/2023 9:50 EDT Temperature (Route Not Specified) 35.37 DegC DegC Heart Rate Monitored 62 bpm bpm Respiratory Rate - Anes 12 br/min br/min 07/17/2023 9:45 EDT Temperature (Route Not Specified) 35.43 DegC DegC Heart Rate Monitored 66 bpm bpm Respiratory Rate - Anes 12 br/min br/min 07/17/2023 9:40 EDT Temperature (Route Not Specified) 35.42 DegC DegC Heart Rate Monitored 58 bpm bpm Respiratory Rate - Anes 12 br/min br/min 07/17/2023 9:35 EDT Temperature (Route Not Specified) 35.41 DegC DegC Heart Rate Monitored 115 bpm bpm Respiratory Rate - Anes 30 br/min br/min 07/17/2023 9:30 EDT Temperature (Route Not Specified) 35.01 DegC DegC Heart Rate Monitored 93 bpm bpm Respiratory Rate - Anes 16 br/min br/min 07/17/2023 9:25 EDT Temperature (Route Not Specified) 32.64 DegC DegC Heart Rate Monitored 53 bpm bpm Respiratory Rate - Anes 12 br/min br/min 07/17/2023 9:20 EDT Temperature (Route Not Specified) 34.76 DegC DegC Heart Rate Monitored 53 bpm bpm Respiratory Rate - Anes 12 br/min br/min 07/17/2023 9:15 EDT Temperature (Route Not Specified) 35.35 DegC DegC Heart Rate Monitored 53 bpm bpm Respiratory Rate - Anes 12 br/min br/min 07/17/2023 9:10 EDT Temperature (Route Not Specified) 35.95 DegC DegC Heart Rate Monitored 51 bpm bpm Respiratory Rate - Anes 12 br/min br/min 07/17/2023 9:09 EDT Systolic Blood Pressure Non-Invasive 107 mmHg mmHg Diastolic Blood Pressure Non-Invasive 57 mmHg mmHg 07/17/2023 9:05 EDT Temperature (Route Not Specified) 35.95 DegC DegC Heart Rate Monitored 58 bpm bpm Respiratory Rate - Anes 12 br/min br/min 07/17/2023 9:00 EDT Temperature (Route Not Specified) 35.95 DegC DegC Heart Rate Monitored 53 bpm bpm Respiratory Rate - Anes 12 br/min br/min 07/17/2023 8:55 EDT Temperature (Route Not Specified) 35.95 DegC DegC Heart Rate Monitored 52 bpm bpm Respiratory Rate - Anes 12 br/min br/min 07/17/2023 8:50 EDT Temperature (Route Not Specified) 35.96 DegC DegC Heart Rate Monitored 53 bpm bpm Respiratory Rate - Anes 12 br/min br/min 07/17/2023 8:45 EDT Temperature (Route Not Specified) 36 DegC DegC Heart Rate Monitored 54 bpm bpm Respiratory Rate - Anes 12 br/min br/min 07/17/2023 8:40 EDT Temperature (Route Not Specified) 35.98 DegC DegC Heart Rate Monitored 58 bpm bpm Respiratory Rate - Anes 12 br/min br/min 07/17/2023 8:35 EDT Temperature (Route Not Specified) 35.98 DegC DegC Heart Rate Monitored 68 bpm bpm Respiratory Rate - Anes 10 br/min br/min 07/17/2023 8:30 EDT Temperature (Route Not Specified) 35.96 DegC DegC Heart Rate Monitored 57 bpm bpm Respiratory Rate - Anes 10 br/min br/min 07/17/2023 8:25 EDT Temperature (Route Not Specified) 35.98 DegC DegC Heart Rate Monitored 60 bpm bpm Respiratory Rate - Anes 10 br/min br/min 07/17/2023 8:20 EDT Temperature (Route Not Specified) 36.02 DegC DegC Heart Rate Monitored 62 bpm bpm Respiratory Rate - Anes 10 br/min br/min 07/17/2023 8:15 EDT Temperature (Route Not Specified) 36.07 DegC DegC Heart Rate Monitored 65 bpm bpm Respiratory Rate - Anes 10 br/min br/min 07/17/2023 8:10 EDT Temperature (Route Not Specified) 34.43 DegC DegC Heart Rate Monitored 67 bpm bpm Respiratory Rate - Anes 7 br/min br/min 07/17/2023 8:09 EDT Systolic Blood Pressure Non-Invasive 137 mmHg mmHg Diastolic Blood Pressure Non-Invasive 95 mmHg mmHg 07/17/2023 8:05 EDT Heart Rate Monitored 71 bpm bpm Respiratory Rate - Anes 7 br/min br/min Systolic Blood Pressure Non-Invasive 132 mmHg mmHg Diastolic Blood Pressure Non-Invasive 108 mmHg mmHg 07/17/2023 8:02 EDT Systolic Blood Pressure Non-Invasive 118 mmHg mmHg Diastolic Blood Pressure Non-Invasive 84 mmHg mmHg 07/17/2023 8:00 EDT Heart Rate Monitored 83 bpm bpm Respiratory Rate - Anes 9 br/min br/min 07/17/2023 7:55 EDT Respiratory Rate - Anes 0 br/min br/min 07/17/2023 7:50 EDT Respiratory Rate - Anes 0 br/min br/min 07/17/2023 6:10 EDT Temperature Oral 36.8 DegC Peripheral Pulse Rate 67 bpm Respiratory Rate 18 br/min Systolic Blood Pressure Non-Invasive 156 mmHg HI Diastolic Blood Pressure Non-Invasive 94 mmHg HI , Oxygen Therapy : Oxygen Therapy & Oxygenation Information 07/17/2023 11:15 EDT Oxygen Therapy Simple mask Oxygen Saturation 99 % Oxygen Flow Rate 5 07/17/2023 11:10 EDT Oxygen Therapy Simple mask Oxygen Saturation 98 % Oxygen Flow Rate 6 07/17/2023 11:05 EDT Oxygen Therapy Simple mask Oxygen Saturation 97 % Oxygen Flow Rate 6 07/17/2023 10:55 EDT Oxygen Saturation 100 % % 07/17/2023 10:50 EDT Oxygen Saturation 99 % % 07/17/2023 10:45 EDT Oxygen Saturation 99 % % 07/17/2023 10:40 EDT Oxygen Saturation 99 % % 07/17/2023 10:35 EDT Oxygen Saturation 99 % % 07/17/2023 10:30 EDT Oxygen Saturation 99 % % 07/17/2023 10:25 EDT Oxygen Saturation 99 % % 07/17/2023 10:20 EDT Oxygen Saturation 99 % % 07/17/2023 10:15 EDT Oxygen Saturation 99 % % 07/17/2023 10:10 EDT Oxygen Saturation 99 % % 07/17/2023 10:05 EDT Oxygen Saturation 99 % % 07/17/2023 10:00 EDT Oxygen Saturation 100 % % 07/17/2023 9:55 EDT Oxygen Saturation 99 % % 07/17/2023 9:50 EDT Oxygen Saturation 100 % % 07/17/2023 9:45 EDT Oxygen Saturation 99 % % 07/17/2023 9:40 EDT Oxygen Saturation 99 % % 07/17/2023 9:35 EDT Oxygen Saturation 100 % % 07/17/2023 9:30 EDT Oxygen Saturation 100 % % 07/17/2023 9:25 EDT Oxygen Saturation 100 % % 07/17/2023 9:20 EDT Oxygen Saturation 100 % % 07/17/2023 9:15 EDT Oxygen Saturation 100 % % 07/17/2023 9:10 EDT Oxygen Saturation 100 % % 07/17/2023 9:05 EDT Oxygen Saturation 100 % % 07/17/2023 9:00 EDT Oxygen Saturation 100 % % 07/17/2023 8:55 EDT Oxygen Saturation 100 % % 07/17/2023 8:50 EDT Oxygen Saturation 100 % % 07/17/2023 8:45 EDT Oxygen Saturation 100 % % 07/17/2023 8:40 EDT Oxygen Saturation 100 % % 07/17/2023 8:35 EDT Oxygen Saturation 100 % % 07/17/2023 8:30 EDT Oxygen Saturation 100 % % 07/17/2023 8:25 EDT Oxygen Saturation 100 % % 07/17/2023 8:20 EDT Oxygen Saturation 100 % % 07/17/2023 8:15 EDT Oxygen Saturation 100 % % 07/17/2023 8:10 EDT Oxygen Saturation 100 % % 07/17/2023 8:05 EDT Oxygen Saturation 100 % % 07/17/2023 8:00 EDT Oxygen Saturation 98 % % 07/17/2023 6:10 EDT Oxygen Therapy Room air Oxygen Saturation 95 % . Mental status: at preoperative baseline. Respiratory function: respirations are non-labored, Stable. Respiratory support: none. CV function: Stable. Cardiovascular support: none. Pain: Satisfactory. Nausea status: Satisfactory. Postoperative hydration status: within normal limits. Notes: Patient is sufficiently recovered from anesthesia to participate in the evaluation. No follow-up care needed. No complications post-anesthesia.. Digitally Signed by NANCY CARPENTER MD on 07/17/2023 11:21 AM [id number]* Exam Date Time Procedure Performing Provider Status 07/17/23 7:52 AM Ablation Cryo-Ensite - CV Auth (Verified) [facility] 10-18-2023 Anesthesiology Progress note Patient: WENDI MORALES Age: 58 years Sex: Male : 1965 Associated Diagnoses: None Author: NANCY CARPENTER MD Preoperative Information Greater than 6 hours Anesthesia history Patient's history: negative. Family's history: negative. Review of Systems Ear/Nose/Mouth/Throat: Negative except as documented in history of present illness. Respiratory: Negative except as documented in history of present illness. Cardiovascular: Negative except as documented in history of present illness. Gastrointestinal: Negative except as documented in history of present illness. Genitourinary: Negative except as documented in history of present illness. Endocrine: Negative except as documented in history of present illness. Musculoskeletal: Negative except as documented in history of present illness. Integumentary: Negative except as documented in history of present illness. Neurologic: Negative except as documented in history of present illness. Health Status Allergies: Nonallergic Reactions (Selected) Severity Not Documented Lisinopril- Cough., Allergies (1) ActiveReaction lisinoprilcough Current medications: (Selected) Inpatient Medications Ordered NS 1,000 mL: 20 mL/hr, Intravenous Prescriptions Prescribed Metoprolol Succinate ER 25 mg oral TABLET extended release: 12.5 mg, 0.5 tab(s), Oral, qDay, TAKE ONE-HALF TABLET BY MOUTH EVERY DAY, 90 tab(s), 2 Refill(s) Tikosyn 250 mcg oral capsule: 250 mcg, 1 cap(s), Oral, q12h, 180 cap(s), 2 Refill(s) apixaban 5 mg oral tablet: 5 mg, 1 tab(s), Oral, BID, 60 tab(s), 3 Refill(s) Documented Medications Documented spironolactone 25 mg oral tablet: 25 mg, 1 tab(s), Oral, qDayM, 0 Refill(s) valsartan 160 mg oral tablet: 80 mg, 0.5 tab(s), Oral, qDay, 30 tab(s), 0 Refill(s), Medications (1) Active Scheduled: (0) Continuous: (1) NS (0.9% nacl) 1,000 mL 1,000 mL, Intravenous, 20 mL/hr PRN: (0) Problem list: Medical AFIB- Paroxysmal, chadsvasc= 1 / SNOMED CT 48869625 / Confirmed Hypertension / SNOMED CT 4854870668 / Confirmed NSVT (nonsustained ventricular tachycardia) / SNOMED CT 7139869299 / Confirmed, Active Problems (5) AFIB- Paroxysmal, chadsvasc= 1 Cardiomyopathy: NID EF 47% [2022] Hypertension NSVT (nonsustained ventricular tachycardia) EM (obstructive sleep apnea) Histories Past Medical History: No active or resolved past medical history items have been selected or recorded. Family History: Asthma Grandparent High blood pressure Father Heart failure Grandparent Diabetes Grandparent Procedure history: Full sleep study ([id number]) on 10/25/2021 at 56 Years. Appendectomy ([id number]). Cardiac catheterization, left heart ([id number]). Social History Social & Psychosocial Habits Alcohol 07/17/2023 Use: None Employment/School 05/28/2023 Status: Employed Substance Abuse 07/17/2023 Use: Never Tobacco 07/17/2023 Tobacco Use: Former smoker, quit more Type: Cigarettes Tobacco use per day: 10 Comment: quit 27 years ago - 02/20/2021 14:55 - Nilsa Pena LPN Home/Environment 07/17/2023 Marital Status of Patient if Patient Independent Adult: Nutrition/Health 07/17/2023 Caffeine intake amount: Occassional, not daily Sexual 07/17/2023 Self described orientation: Straight or heterosexual What is your current gender identity? (Check all that apply) Identifies as male . Physical Examination Vital Signs 07/17/2023 6:10 EDT Temperature Oral 36.8 DegC Peripheral Pulse Rate 67 bpm Respiratory Rate 18 br/min Systolic Blood Pressure Non-Invasive 156 mmHg HI Diastolic Blood Pressure Non-Invasive 94 mmHg HI Vital Signs(last 24 hrs) Last Charted Temp Oral36.8 DegC (JUL 17 06:10) Resp Rate 18 br/min (JUL 17 06:10) SBPH 156mmHg (JUL 17 06:10) DBPH 94mmHg (JUL 17:10) BMI35.06 (JUL 17 06:10) Measurements from flowsheet : Measurements 07/17/2023 6:10 EDT Height 188.0 cm Admission Weight 123.9 kg [place] Body Weight 82.24 kg Body Mass Index 35.06 kg/m2 Pain assessment: Pain Assessment 07/17/2023 6:10 EDT Primary Pain Intensity 0 Pain Scale Type 0-10 Pain scale . General: Alert and oriented. Airway: Normal temporomandibular joint mobility, Normal mouth, Normal throat, Normal neck range of motion, Trachea midline. Mallampati classification: II (soft palate, fauces, uvula visible). Head: Normocephalic. Dentition Evaluation: Intact, Own teeth, Missing teeth, Denies loose/chipped teeth. Neck: Supple. Respiratory: Lungs are clear to auscultation, Respirations are non-labored. Cardiovascular: Normal rate, Regular rhythm, No murmur. Heart Sounds: Normal. Gastrointestinal: Soft. Musculoskeletal Normal range of motion. Integumentary: Intact, Warm, Dry. Neurologic: Alert, Oriented. Review / Management Results review: Labs (Last four charted values) WBC 7.6(JUL 17) Hgb 15.4(JUL 17) Hct 45.6(JUL 17) Plt 204(JUL 17) PT 11.9(JUL 17) INR 1.0(JUL 17) , Lab results 07/17/2023 6:28 EDT SN - Preop - CTm - Pt in HL SD Room 07/17/2023 5:40 SN - Preop - CTm - HL Pt Ready for Procedure 07/17/2023 6:28 07/17/2023 6:25 EDT Electrocardiogram - EKG - CV Completed (In Progress) 07/17/2023 6:18 EDT Protime 11.9 seconds PT International Ratio 1.0 ratio NA ABO/Rh Interp O POS ABSC Interp (Gel) Negative ABSC 07/17/2023 6:17 EDT Forearm Left 07/17/2023 20 gauge Peripheral IV Activity: Insert new site Peripheral IV Dressing Condition: Clean, Dry, Intact Peripheral IV Dressing Activity: Applied, Transparent dressing Peripheral IV Line Status/Patency: Flushes easily, 10ml normal saline flush, Good blood return Peripheral IV Site Condition: No complications Peripheral IV Equipment: PRN Adaptor Peripheral IV Number of Attempts: 2 07/17/2023 6:13 EDT IV Present Present Violence Risk Confused No Violence Risk Irritable No Violence Risk Boisterous No Violence Risk Verbal Threats No Violence Risk Physical Threats No Violence Risk Attacking Objects No Violence Risk Predictor Score 0 Violence Risk Intervention None Violence Risk Current Interventions None Allergies Yes Consent Form Signed Yes Patient Dressed In Hospital gown, No undergarments Obstructive Sleep Apnea Assess Completed Yes Belongings At Bedside Pants, Shirt, Shoes, Socks, Undergarments, Pt participated in reconciliation NPO Status Maintained Allergy Band on and Verified Yes Patient ID Band on and Verified Yes Blood Consent Signed Yes Last Fluid Intake 07/16/2023 21:00 Last Food Intake 07/16/2023 21:00 Last Void 07/17/2023 6:00 07/17/2023 6:10 EDT Designated Person #1 We May Share WU Morales [phone] Designated Person #1 Relationship Spouse Privacy Restrictions Requested None Height 188.0 cm Admission Weight 123.9 kg [place] Body Weight 82.24 kg Body Mass Index 35.06 kg/m2 Temperature Oral 36.8 DegC Peripheral Pulse Rate 67 bpm Respiratory Rate 18 br/min Systolic Blood Pressure Non-Invasive 156 mmHg HI Diastolic Blood Pressure Non-Invasive 94 mmHg HI Primary Pain Intensity 0 Pain Scale Type 0-10 Pain scale Heart Rhythm Regular Dorsalis Pedis Pulse, Left 2+ Normal Dorsalis Pedis Pulse, Right 2+ Normal Posttibial Pulse, Left 2+ Normal Posttibial Pulse, Right 2+ Normal Radial Pulse, Left 2+ Normal Radial Pulse, Right 2+ Normal Respirations Unlabored Respiratory Pattern Regular Breath Sounds Auscultated Anterior and posterior All Lobes Breath Sounds Clear Oxygen Therapy Room air Oxygen Saturation 95 % Abdomen Description Non-distended, Soft Abdomen Palpation Non-Tender Bowel Sounds All Quadrants Present Urinary Elimination Voiding, no difficulties Status N/A Skin Temperature Warm Skin Description Normal for ethnicity, Dry Skin Integrity Intact Mucous Membrane Color [place] Neurological Symptoms Patient denies Extremity Movement Equal Characteristics of Speech Clear Level of Consciousness Alert MAMADOU Yes Strength All Extremities Strong Tone All Extremities Normal Sensation All Extremities Intact Affect/Behavior Appropriate, Calm, Cooperative Orientation Oriented x 4 Sensory Deficits None Sleep Apnea Snore Yes Sleep Apnea Tired No Sleep Apnea Obstruction No Sleep Apnea Pressure Yes Sleep Apnea BMI Yes Sleep Apnea Age Yes Sleep Apnea Neck No Sleep Apnea Gender Yes Sleep Apnea Score 5 HI Diagnosed With Sleep Apnea No Advanced Directives No - refuses information Infectious Disease Symptoms Patient states no symptoms Infectious Disease Recent Exposure No Alcohol and Drug Use No Employee of Institutional Living No Health Care Employee No History of Exposure to TB No History of Positive Chest X-Ray for TB No History of Positive TB Skin Test No Homeless No Known Immunosuppression No Recent Immigrant No Resident of Institutional Living No Bloody Sputum No Fatigue No Fever No Loss of Appetite No Night Sweats No Persistent Cough > 3 Weeks No Weight Loss No Orientation Assessment Oriented x 4 Individuals Taught Patient, Spouse Learning Readiness Willing to learn Barriers to Learning None evident Teaching Method Explanation Preferred Spoken Language B[place] Preferred Written Language B[place]ian Family/Caregiver Prefer Spoken Language B[place]udian Family/Caregiver Prefer Written Language B[place]ian Teaching Evaluation Verbalizes/Nonverbally indicates understanding Safety Brochure Information Reviewed Yes Brady Davison Video Viewed Patient refused Information Given by Patient Patient's Current Physicians Patient's Current Physicians Discharge To, Anticipated Home independently Assistive Device None Positioning Repositions self Activity Status ADL Resting Standard Safety ID band on, Allergy Band on, Call device within reach, Bed in low position, Wheels locked, Upper/Half-Length side-rails up, Phone within reach, personal items within reach, Visitor atbedside, Safety level maintained, Non-Slip footwear, Precautions maintained High Risk Safety Room check performed Demonstrates Correct Call Light Use Yes Prev Test Positive/Diagnosis w/COVID-19 No Current Quarantine/Isolated any Illness No Any Contact with Sick Animals/Birds No Traveled Anywhere in Last 30 Days No Lost Weight Unintentionally Recently No Eat Poorly Due to Decreased Appetite No Total MST Score 0 N/A Personal Devices, Patient Valuables Glasses Anesthesia/Transfusions Prior anesthesia Admission Note-Nursing Same Day Patient History 07/17/2023 6:07 EDT WBC 7.6 10^3/mcL RBC 5.21 10^6/mcL Hgb 15.4 G/dL Hct 45.6 % MCV 87.5 fL MCH 29.5 pg MCHC 33.8 G/dL RDW 14.5 % Platelet 204 10^3/mcL MPV 9.2 fL Neutrophil % 69.1 % Lymphocyte % 20.2 % Monocyte % 7.6 % Eosinophil % 2.6 % Basophil % 0.5 % Neutrophil, Absolute 5.3 10^3/mcL Lymphocyte, Absolute 1.5 10^3/mcL Monocyte, Absolute 0.6 10^3/mcL Eosinophil, Absolute 0.2 10^3/mcL Basophil, Absolute 0.0 10^3/mcL . Assessment and Plan [place] Society of Anesthesiologists (ASA) physical status classification: Class III. Anesthetic Preoperative Plan Premedication: intravenous. Anesthetic technique: General. Induction: intravenously. Maintenance airway: Oral endotracheal tube. Special techniques: Warming device. Special Monitoring. Postoperative pain management: Per surgeon. Risks discussed: nausea, vomiting, headache, sore throat, dental injury, hypotension, allergic reaction, serious complications. Informed consent: signed by patient. Beta Ayala: Beta Ayala Taken Within 24 Hrs: Yes. Digitally Signed by NANCY CARPENTER MD on 07/17/2023 07:39 AM [id number] NoteSINUS RHYTHM Electronic Signature: FLORINA CHESTER MD 07/18/2023 11:23:[address] [place] [address] 10-16-2023 History and physical note HISTORY & PHYSICALPCP: MD Andrew Patient: Wendi Morales medical record# [id number] date of Admission: 07/17/23 CC: Palpitations and atrial fibrillation. HPI: 58 yr old male patient presenting for [facility] Pulmonary Vein Antral Isolation (PVAI) ablation for Paroxysmal Atrial Fibrillation, CHADSVASC= 1, with symptoms of palpitations and believed arrhythmia-mediated cardiomyopathy. Cardiac Catheterization 03/2023 showed mild CAD LVEF 47%. Sinus bradycardia develops on higher-dose antiarrhythmic therapy. He denies any angina, dyspnea, lightheadedness, or swelling. He has been on therapeutic anticoagulation for the last several weeks. ALLERGIES: lisinopril (cough). HOME MEDICATIONS: 1. Eliquis 5mg BID, last dose 24 hours prior to procedure. 2. Tikosyn 250mcg q12h. 3. Metoprolol succinate 25mg tablet, 1/2 tablet qAM. 4. Valsartan 160mg tablet, 1/2 tablet qAM. 5. Spironolactone 25mg qAM. PMH: 1. Paroxysmal Atrial Fibrillation, CHADSVASC= 1, with palpitations. 2. Unsustained Ventricular Tachycardia. 3. Cardiomyopathy (htn, arrhythmia) LVEF 47%. 4. Non-significant CAD by CATH 03/2023. 5. EM. 6. Sinus bradycardia on higher-dose antiarrhythmic therapy. SHx: Reformed tobacco use, no alcohol consumption, occasional caffeine intake. FHx: Father had HTN, Grandparent had asthma/dm/chf. RoS: Positives per HPI, remainder reviewed and negative. PE: 140/80 P58 r18 Ht 188cm Wt 123kg bmi 34.8 CONSTITUTIONAL: Well-developed, well nourished, in no acute distress. HEAD: Normocephalic, atraumatic. EENT: Pupils round, reactive to light and accommodation. Extraoccular muscles intact. No ENT exudates. NECK: No jugular venous distention, no carotid bruits, no thyroid masses. LUNGS: Clear, normal respiratory excursion. COR: Apical impulse not displaced. single S1 S2, no S3, S4, rub, click or murmur. ABD: Bowel sounds present, soft, nontender, no masses or pulsations. EXTREMITIES: Pulses 2+ bilaterally, no edema. SKIN: No rash or chronic skin infection. LYMPH: No lymphadenopathy noted. NEURO: Alert and oriented to person place time, no gross focal motor deficit. IMPRESSION: 1. Paroxysmal Atrial Fibrillation, CHADSVASC= 1, with palpitations. 2. Unsustained Ventricular Tachycardia. 3. Cardiomyopathy (htn, arrhythmia) LVEF 47%. 4. Non-significant CAD by CATH 03/2023. 5. EM. 6. Sinus bradycardia on higher-dose antiarrhythmic therapy. PLAN: CRYO PVAI ablation. We will perform EPS with 3D mapping (st shireen), transeptal puncture for left atrial access guided by Intracardiac Echocardiography and Vascular Ultrasound, using general anesthesiaand iv anticoagulation. Findings reviewed with patient including risks of diagnoses. Proposed procedure and risks explained. Questions answered. He agrees to proceed. Post-procedure he will follow up08/19/23 2pm with physician pharmacy technician assistant, Yane Caldwell. Kimo Viramontes MD, [facility], [facility] pager [phone] Digitally Signed by KIMO VIRAMONTES MD on 07/15/2023 06:40 AM [facility] [id number] NotePRE[facility] SUMMARY NAME ACCOUNT SEX AGE ADMIT DISCHARGE PT MED. RECORD# NUMBER DATE DATE TYPE WENDI MORALES [id number] M 58 04/08/23 04/10/23 2 [id number] ROOM: [facility] DATE OF : 1965 ATTENDING PHYSICIAN: Jayme Carrera ADMITTING DIAGNOSES: 1. Atrial fibrillation with rapid ventricular response. 2. Ventricular arrhythmia. FINAL DIAGNOSES: 1. Atrial fibrillation reversed back to sinus rhythm. 2. Frequent premature ventricular contractions, some resolved. HOSPITAL COURSE: This is a 58-year-old gentleman with known atrial fibrillation who presented to the emergency room. He was at home when he felt his heart was going fast with palpitations. His heart rate was 170 on the pulse monitor he had, and he was okay with that initially. Then, he started to feel dizzy about 30 to 40 minutes, and he did present to the emergency room. He was in atrial fibrillation with rapid ventricular response. He was initiated on medications then, and admitted for management. The patient was already anticoagulated, and his diagnosis was already established as he had a recent admission to [facility]. The patient had improved when he converted to sinus rhythm, and the plan was to add beta ayala to help keep him under control. Of note, is that the patient previously had some bradyarrhythmia with larger doses of beta blockers. Condition on discharge was stable. MEDICATIONS ON DISCHARGE: The patient has metoprolol 12.5 mg daily initiated on his therapy. He was resumed on Tikosyn, Eliquis, aspirin, and Valsartan, and he has a followup appointment for arrangements for ablation. DISCHARGE INSTRUCTIONS/PLAN: Diet: Regular. No added salt. Activity: As tolerated. Followup with primary care physician and Cardiology. Dictated By: Jayme Carrera MD 04/10/23 12:09 JOB #: [id number] Transcribed By: am 04/10/23 15:15 Electronically signed by: E-Sign: JAYME CARRERA MD 04/12/23 07:45 Page 1 of 2 WENDI MORALES Discharge Summary WENDI MORALES : 1965 Page 2 of 2 WENDI [facility]ORALES [facility] NotePRE[facility] H[facility] & PHYSICAL NAME ACCOUNT SEX AGE ADMIT DISCHARGE PT MED. RECORD# NUMBER DATE DATE TYPE WENDI MORALES [id number] Davion 58 04/08/23 2 D [id number] ROOM: [place] [facility] DATE OF : 67 DICTATING PHYSICIAN: Jayme Carrera ADMITTING DIAGNOSIS: Recurrent atrial fibrillation. CHIEF COMPLAINT: Dizziness and palpitations. HISTORY OF PRESENT ILLNESS: This is a 58-year-old gentleman with a history of atrial fibrillation who had [facility] The patient was at home. He has already been initiated on Tikosyn therapy for atrial fibrillation. The patient yesterday evening was sitting down, and he started to feel a little bit of palpitations. He checked his pulse, and it was as high as 170 and he started to feel dizzy, and he presented to the emergency room. In the emergency room, he was in intermittent atrial fibrillation, and he was admitted for management. When I interviewed the patient, he denied any chest pain or shortness of breath. He did not any other significant symptoms other than the palpitations and slightly dizzy. Since the patient was admitted, he has converted to sinus rhythm. PAST MEDICAL HISTORY: Past medical history is remarkable for (1) Atrial fibrillation with rapid ventricular response in the past paroxysmal variety. (2) Hypertension. (3) Obesity. (4) Left ankle fracture. PAST SURGICAL HISTORY: (1) He had an appendectomy. (2) Left ankle surgery. MEDICATIONS: Current medications at home: The patient is currently on Valsartan 160 mg daily, spironolactone 25 mg daily, Eliquis 5 mg twice daily, Tikosyn 250 mcg twice daily, and aspirin 81 mg daily. ALLERGIES: The patient has an intolerance to lisinopril. FAMILY HISTORY: Both parents are alive and healthy. There is no family history of atrial fibrillation. One grandfather has congestive heart failure. SOCIAL HISTORY: The patient is . He lives at home. He had 5 children. He does not smoke or drink alcohol. REVIEW OF SYSTEMS: The patient has denied any weight loss or gain. No headache, blurry vision, earache, or sore throat. No fever or chills. No neck pain. No chest pain. No Page 1 of 3 WENDI MORALES History & Physical WENDI MORALES :1965 abdominal pain, diarrhea, constipation, difficulty with urination, increased frequency or burning, and no skin rash. PHYSICAL EXAMINATION GENERAL APPEARANCE: This is a 58-year-old gentleman who is pleasant and sitting up in chair. VITAL SIGNS: Blood pressure was 123/75, heart rate 95. HEENT: Normocephalic and atraumatic. Tongue to midline. NECK: Neck is supple. LUNGS: Clear bilaterally. HEART: Regular. No gallop or murmurs. ABDOMEN: Soft. EXTREMITIES: Revealed no edema. DIAGNOSTIC DATA: Laboratory data has revealed his white count yesterday was 11.5 and it is 7.6 today. Sodium was 143, potassium 4.2, BUN 31, creatinine 1.63. IMPRESSION: Atrial fibrillation, recurrent and paroxysmal variety. He did convert to sinus rhythm. The patient is already on Tikosyn. PLAN: The patient was admitted. He will continue on anticoagulant Eliquis, and we will consult cardiology in regards to his case and the decision pertinent to the management of his current medications for the atrial fibrillation. I did discuss management with the atrial fibrillation with the patient, and the patient was planning to have an EP evaluation as an outpatient. Dictated By: Jayme Carrera MD 04/09/23 09:31 JOB #: [id number] Transcribed By: juana 04/09/23 11:11 Electronically signed by: E-Sign: JAYME CARRERA MD 04/12/23 07:44 Page 2 of 3 WENDI MORALES History & Physical WENDI MORALES :1965 Update to H&P: [ ] No changes: I have examined the patient and reviewed the H&P and there are no changes. [ ] As previously dictated with the following changes: ____ ____ ____ PHYSICIAN SIGNATURE: TIME: DATE: Page 3 of 3 WENDI MORALES History & PhysicalJoel Counts Include 234 Beds At [facility] 04-01-2023 Hospital Discharge instructions Patient Education 04/01/2023 15:31:55 Ventricular Tachycardia Ventricular Tachycardia Ventricular tachycardia is a fast heartbeat that begins in the lower chambers of the heart (ventricles). It is a type of abnormal heart rhythm (arrhythmia). A normal heartbeat usually starts when an area in the heart called the sinoatrial (SA) node releases an electrical signal. With ventricular tachycardia, electrical signals in the lower part of the heart fire abnormally and interfere with the electrical signals sent out by the SA node. A normal heart rate is 60 100 beats per minute. During an episode of ventricular tachycardia, the heart reaches 100 beats per minute or higher. This condition can be life-threatening and should be treated immediately. What are the causes? This condition is caused by abnormal electrical activity in the lower part of the heart. This may result from: Medicines. Diseases of the heart muscle (cardiomyopathy). The heart not getting enough oxygen. This may be caused by blood flow problems in the arteries. An inflammatory disease that affects multiple areas of the body (sarcoidosis). Drug use, such as cocaine, amphetamine, or anabolic steroid use. What increases the risk? You are more likely to develop this condition if: You have had a heart attack. You have: ?Heart failure or cardiomyopathy. ?Heart defects that you were born with (congenital heart defects). ?Abnormal heart tissue. ?Heart valves that leak or are narrow. ?Diabetes. ?An infection that affects the heart. ?High blood pressure. ?An overactive or underactive thyroid. ?Sleep apnea. ?A family history of stopped heartbeat (cardiac arrest) or coronary artery disease. ?High cholesterol. You smoke. You drink alcohol heavily. You use drugs, such as cocaine. What are the signs or symptoms? Symptoms of this condition include: A pounding heartbeat. Feeling as if your heart is skipping beats or fluttering (palpitations). Shortness of breath. Anxiety. Dizziness. Light-headedness. Fainting. Chest pain. Cardiac arrest caused by an irregular heartbeat (arrhythmia). How is this diagnosed? This condition may be diagnosed based on: Your symptoms and medical history. A physical exam. Electrocardiogram (ECG). This test is done to check for problems with electrical activity in the heart. Holter monitor or event monitor test. This test involves wearing a portable device that monitors your heart rate over time. You may also have other tests, including: Blood tests. Chest X-ray. Echocardiogram. This test involves using sound waves to create images of the heart. Angiogram. During this test, dye is injected into your bloodstream, and then X- rays are taken. The dye lets your health care provider see how blood flows through your arteries. Exercise stress test. During this test, an ECG is done while you exercise on a treadmill. Cardiac CT scan or cardiac MRI. How is this treated? Treatment for this condition depends on the cause. Treatment may include: Medicines that slow the heart rate and return it to a normal rhythm (anti-arrhythmics). An electric shock (cardioversion) that makes the heart go back to a normal rhythm. An electrophysiology study. This procedure can help locate areas of heart tissue that are causing rapid heartbeats. ?In this procedure, a thin, flexible tube (catheter) is inserted into one of your veins and moved to your heart to evaluate your heart's electrical activity. ?In some cases, the heart tissue that is causing problems may be killed with radiofrequency energy delivered through the catheter (radiofrequency ablation). This may help your heart keep a normal rhythm. An implantable cardioverter defibrillator (ICD). This is a small device that monitors your heartbeat. When it senses an irregular heartbeat, it sends a shock to bring the heartbeat back to normal. The ICD is implanted under the skin in the chest. Surgery to improve blood flow to the heart. Genetic counseling to check whether your family members are at risk for ventricular tachycardia. Follow these instructions at home: Lifestyle Do not use any products that contain nicotine or tobacco, such as cigarettes and e-cigarettes. If you need help quitting, ask your health care provider. Do not use stimulant drugs, such as cocaine or methamphetamines. Maintain a healthy weight. Manage stress. Try to do this with relaxation exercises, yoga, quiet time, or meditation. Eating and drinking Eat a healthy diet. This includes plenty of fruits and vegetables, whole grains, lean meats, and low-fat or fat-free dairy products. Avoid eating foods that are high in saturated fat, trans fat, sugar, or salt (sodium). Ask your health care provider if you may drink alcohol. ?If alcohol triggers episodes of ventricular tachycardia, do not drink alcohol. ?If alcohol does not trigger episodes, limit alcohol intake to no more than 1 drink a day for non women and 2 drinks a day for men. One drink equals 12 oz of beer, 5 oz of wine, or 1 oz of hard liquor. General instructions Take frrs-lza-uavdtst and prescription medicines only as told by your health care provider. Exercise regularly. Aim for 150 minutes of moderate exercise or 75 minutes of vigorous exercise perweek. Ask your health care provider what exercises are safe for you. Keep all follow-up visits as told by your health care provider. This is important. Contact a health care provider if: Your symptoms get worse. You develop new symptoms, such as new palpitations. You feel depressed. Get help right away if: You have an episode of ventricular tachycardia that lasts 30 seconds or more. You have chest pain. You have trouble breathing. These symptoms may represent a serious problem that is an emergency. Do not wait to see if the symptoms will go away. Get medical help right away. Call your local emergency services (911 in the [place] Do not drive yourself to the hospital. Summary Ventricular tachycardia is a fast heartbeat that begins in the lower chambers of the heart. This condition can be life-threatening and should be treated immediately. This condition may be treated with medicines, electric shock, radiofrequency energy, surgery, or insertion of an implantable cardioverter defibrillator (ICD). Get help right away if you have chest pain, trouble breathing, or ventricular tachycardia symptoms that last more than 30 seconds. This information is not intended to replace advice given to you by your health care provider. Make sure you discuss any questions you have with your health care provider. Document Released: 11/07/2017 Document Revised: 08/29/2018 Document Reviewed: 11/07/2017 [employer] Patient Education 2020 [employer]. Follow Up Care 03/29/2023 05:49:25 With:Cardiac Rehab- [facility] Address: [address] [address]- When: Unknown Comments:The Cardiac Rehab department will call you to schedule you for phase 2. We left you a brochure withinformation about cardiac rehab. If you have any questions please call [phone]. With:CHINA MORALES MD Address: [address] [place] [address]- When:1-2 days Comments:Please call the office to schedule a follow up appointment. With:AGGIE RAM MD Address: [facility] [address] [place], [place] [address]- [phone] When:04/17/2023 13:30:00 [facility] 07-03-2023 Note Discharge Instructions Thank you for allowing [facility] to assist you with your healthcare needs. The following is importantdischarge information regarding your hospital visit. Your Care Team CHINA MORALES MD What to do next Scheduled Follow-Up Appointments Appointment Type When Where Contact InformationCV OV 04/17/2023 01:30 PM EDT [facility] Up Appointments Follow Up with AGGIE RAM MD When 04/17/2023 01:30 PM EDT Where: [address] [facility] [address] [place], [place] [address]- [phone] Follow Up with Cardiac Rehab- [facility] When Why: The Cardiac Rehab department will call you to schedule you for phase 2. We left you a brochurewith information about cardiac rehab. If you have any questions please call [phone]. Where: [address] [address]- Follow Up with CHINA MORALES MD When Within 1-2 days Why: Please call the office to schedule a follow up appointment. Where: [address] [facility] [address] [place] [address]- The Following Activity and Diet Have Been Ordered for You Discharge Activity - Ordered -- NO activity restrictions, 04/01/23 15:29:00 EDT Discharge Diet - Ordered -- No changes were made to your diet during your hospital stay. Please resume your pre hospitalization diet on discharge., 04/01/23 15:29:00 EDT The Following Equipment Has Been Ordered for You No qualifying data available. The Following Treatments Have Been Ordered for You Discharge Labs No qualifying data available. Discharge Radiology No qualifying data available. Other Therapies No qualifying data available. Post Acute Orders No qualifying data available. Someone Will Contact You Regarding These Home Health Referrals No home referrals have been ordered for you. No one will call you. Allergies lisinopril (cough) Medications Please ask your primary doctor or pharmacist before taking any other medication not listed, including over the counter drugs, herbal medications, vitamins and or supplements as they may interact withyour home medications. What How Much When Instructions Last Dose New dofetilide (Tikosyn 250 mcg oral capsule) 1 cap by mouth Every 12 hours Pickup at [facility]. Changed apixaban (apixaban 5 mg oral tablet) 1 tab(s) by mouth Two (2) times a day Changed spironolactone (spironolactone 25 mg oral tablet) 1 tab(s) by mouth Once a day with a meal Changed valsartan (valsartan 160 mg oral tablet) 1 tab(s) by mouth Once a day Pharmacy Information [facility] [address] [place], [place] [phone] What How Much When Comments Stop Taking aspirin (aspirin 81 mg oral delayed release tablet) 1 tab(s) by mouth Once a day Stop Taking dilTIAZem (Cartia XT 180 mg/ 24 hours oral capsule, extended release) 1 cap by mouth Once a day Stop Taking sotalol (sotalol 80 mg oral tablet) TAKE ONE-HALF TABLET BY MOUTH EVERY TWELVE HOURS Please take this list to your next doctor s visit. Bring all medications you take, including over the counter medications, herbals and other supplements with you to your doctor s visit. Patients and families are reminded to discard old lists and to update any records with all medication providers or retail pharmacies. Medication Leaflets dofetilide (garduno FET i lide) Tishwethasyn What is the most important information I should know about dofetilide? You should not take dofetilide if you have severe kidney disease or a history of Long QT syndrome. Serious drug interactions can occur when certain medicines are used together with dofetilide. Tell each of your healthcare providers about all medicines you use now, and any medicine you start or stop using. You will need to spend at least 3 days in a hospital setting when you first start taking dofetilide. This is so your heart rhythm and kidney function can be monitored in case the medicine causes serious side effects. What is dofetilide? Dofetilide is a heart rhythm medicine, also called an antiarrhythmic. Dofetilide is used to help keep the heart beating normally in people with certain heart rhythm disorders of the atrium (the upper chambers of the heart that allow blood to flow into the heart). Dofetilide is used in people with atrial fibrillation or atrial flutter. Dofetilide may also be used for purposes not listed in this medication guide. What should I discuss with my health care provider before taking dofetilide? You should not take dofetilide if you are allergic to it, or if you have: severe kidney disease (or if you are on dialysis); or a history of Long QT syndrome. Some medicines can cause unwanted or dangerous effects when used with dofetilide, and should not beused at the same time. Your doctor may need to change your treatment plan if you use any of the following drugs: cimetidine; dolutegravir; ketoconazole; megestrol; prochlorperazine; trimethoprim (Proloprim, Trimpex, Bactrim, Septra); verapamil; or a diuretic (water pill) that contains hydrochlorothiazide (HCTZ), such as Accuretic, Aldactazide, Atacand HCT, Benicar HCT, Diovan HCT, Dyazide, Exforge HCT, Hyzaar, Lopressor HCT, Maxzide, Micardis HCT, Monopril HCT, Prinzide, Tekturna HCT, Vaseretic, and others. To make sure dofetilide is safe for you, tell your doctor if you have: heart disease, high blood pressure; liver or kidney disease; depression, mental illness; asthma or allergies; any active infection; skin problems; or an electrolyte imbalance (such as low levels of potassium or magnesium in your blood). It is not known whether this medicine will harm an unborn baby. Tell your doctor if you are or plan to become while using this medicine. It is not known whether dofetilide passes into breast milk or if it could harm a nursing baby. You should not breast-feed while you are using dofetilide. How should I take dofetilide? Dofetilide is available only from a hospital or specialty pharmacy. You will need to spend at least 3 days in a hospital setting when you first start taking dofetilide. This is so your heart rhythm and kidney function can be monitored in case the medicine causes serious side effects. Follow all directions on your prescription label. Do not take this medicine in larger or smaller amounts or for longer than recommended. You may take dofetilide with or without food. You should not skip doses or stop using dofetilide suddenly. Stopping suddenly may make your condition worse. Follow your doctor's instructions about tapering your dose. Tell your doctor if you have a prolonged illness that causes severe diarrhea, vomiting, or heavy sweating. These conditions can cause an electrolyte imbalance, making it dangerous for you to use dofetilide. Your blood pressure will need to be checked often. Your kidney function may also need to be checkedwith frequent blood tests. Store at room temperature away from moisture and heat. What happens if I miss a dose? Skip the missed dose and take your next dose at the usual time to stay on schedule. Do not take extra medicine to make up the missed dose. What happens if I overdose? Seek emergency medical attention or call the Poison Help line at . What should I avoid while taking dofetilide? Grapefruit and grapefruit juice may interact with dofetilide and lead to unwanted side effects. Discuss the use of grapefruit products with your doctor. What are the possible side effects of dofetilide? Get emergency medical help if you have any of these signs of an allergic reaction: hives; difficultbreathing; swelling of your face, lips, tongue, or throat. Call your doctor at once if you have: headache with chest pain and severe dizziness, fainting, fast or pounding heartbeats; loss of appetite, vomiting or severe diarrhea; or low magnesium or potassium--confusion, uneven heart rate, increased thirst or urination, sweating, jerking muscle movements, leg discomfort, muscle weakness or limp feeling. Common side effects may include: mild headache; mild dizziness; or cold symptoms such as stuffy nose, sneezing, sore throat. This is not a complete list of side effects and others may occur. Call your doctor for medical advice about side effects. You may report side effects to FDA at 0-999-IYF-9891. What other drugs will affect dofetilide? Other drugs may interact with dofetilide, including prescription and sejg-qoa-htozult medicines, vitamins, and herbal products. Tell each of your health care providers about all medicines you use nowand any medicine you start or stop using. Where can I get more information? Your doctor or pharmacist can provide more information about dofetilide. Remember, keep this and all other medicines out of the reach of children, never share your medicines with others, and use this medication only for the indication prescribed. Every effort has been made to ensure that the information provided by [employer]. ('[employer]') is accurate, up-to-date, and complete, but no guarantee is made to that effect. Drug information contained herein may be time sensitive. [employer] information has been compiled for use by healthcare practitioners and consumers in the [place] and therefore [employer] does not warrant that uses outside of the [place] are appropriate, unless specifically indicated otherwise. [employer] drug information does not endorse drugs, diagnose patients or recommend therapy. [employer] drug information isan informational resource designed to assist licensed healthcare practitioners in caring for their p atients and/or to serve consumers viewing this service as a supplement to, and not a substitute for, the expertise, skill, knowledge and judgment of healthcare practitioners. The absence of a warningfor a given drug or drug combination in no way should be construed to indicate that the drug or drug combination is safe, effective or appropriate for any given patient. [facility] does not assume any responsibility for any aspect of healthcare administered with the aid of information [facility] provides. The information contained herein is not intended to cover all possible uses, directions, precautions, warnings, drug interactions, allergic reactions, or adverse effects. If you have questions about the drugs you are taking, check with your doctor, nurse or pharmacist. Copyright 5436-4290 [employer]. Version: 4.01. Revision Date: 01/11/2016. Education Materials Ventricular Tachycardia Ventricular tachycardia is a fast heartbeat that begins in the lower chambers of the heart (ventricles). It is a type of abnormal heart rhythm (arrhythmia). A normal heartbeat usually starts when an area in the heart called the sinoatrial (SA) node releases an electrical signal. With ventricular tachycardia, electrical signals in the lower part of the heart fire abnormally and interfere with the electrical signals sent out by the SA node. A normal heart rate is 60 100 beats per minute. During an episode of ventricular tachycardia, the heart reaches 100 beats per minute or higher. This condition can be life-threatening and should be treated immediately. What are the causes? This condition is caused by abnormal electrical activity in the lower part of the heart. This may result from: Medicines. Diseases of the heart muscle (cardiomyopathy). The heart not getting enough oxygen. This may be caused by blood flow problems in the arteries. An inflammatory disease that affects multiple areas of the body (sarcoidosis). Drug use, such as cocaine, amphetamine, or anabolic steroid use. What increases the risk? You are more likely to develop this condition if: You have had a heart attack. You have: ? Heart failure or cardiomyopathy. ? Heart defects that you were born with (congenital heart defects). ? Abnormal heart tissue. ? Heart valves that leak or are narrow. ? Diabetes. ? An infection that affects the heart. ? High blood pressure. ? An overactive or underactive thyroid. ? Sleep apnea. ? A family history of stopped heartbeat (cardiac arrest) or coronary artery disease. ? High cholesterol. You smoke. You drink alcohol heavily. You use drugs, such as cocaine. What are the signs or symptoms? Symptoms of this condition include: A pounding heartbeat. Feeling as if your heart is skipping beats or fluttering (palpitations). Shortness of breath. Anxiety. Dizziness. Light-headedness. Fainting. Chest pain. Cardiac arrest caused by an irregular heartbeat (arrhythmia). How is this diagnosed? This condition may be diagnosed based on: Your symptoms and medical history. A physical exam. Electrocardiogram (ECG). This test is done to check for problems with electrical activity in the heart. Holter monitor or event monitor test. This test involves wearing a portable device that monitors your heart rate over time. You may also have other tests, including: Blood tests. Chest X-ray. Echocardiogram. This test involves using sound waves to create images of the heart. Angiogram. During this test, dye is injected into your bloodstream, and then X- rays are taken. The dye lets your health care provider see how blood flows through your arteries. Exercise stress test. During this test, an ECG is done while you exercise on a treadmill. Cardiac CT scan or cardiac MRI. How is this treated? Treatment for this condition depends on the cause. Treatment may include: Medicines that slow the heart rate and return it to a normal rhythm (anti-arrhythmics). An electric shock (cardioversion) that makes the heart go back to a normal rhythm. An electrophysiology study. This procedure can help locate areas of heart tissue that are causing rapid heartbeats. ? In this procedure, a thin, flexible tube (catheter) is inserted into one of your veins and moved toyour heart to evaluate your heart's electrical activity. ? In some cases, the heart tissue that is causing problems may be killed with radiofrequency energy delivered through the catheter (radiofrequency ablation). This may help your heart keep a normal rhythm. An implantable cardioverter defibrillator (ICD). This is a small device that monitors your heartbeat. When it senses an irregular heartbeat, it sends a shock to bring the heartbeat back to normal. The ICD is implanted under the skin in the chest. Surgery to improve blood flow to the heart. Genetic counseling to check whether your family members are at risk for ventricular tachycardia. Follow these instructions at home: Lifestyle Do not use any products that contain nicotine or tobacco, such as cigarettes and e-cigarettes. If you need help quitting, ask your health care provider. Do not use stimulant drugs, such as cocaine or methamphetamines. Maintain a healthy weight. Manage stress. Try to do this with relaxation exercises, yoga, quiet time, or meditation. Eating and drinking Eat a healthy diet. This includes plenty of fruits and vegetables, whole grains, lean meats, and low-fat or fat-free dairy products. Avoid eating foods that are high in saturated fat, trans fat, sugar, or salt (sodium). Ask your health care provider if you may drink alcohol. ? If alcohol triggers episodes of ventricular tachycardia, do not drink alcohol. ? If alcohol does not trigger episodes, limit alcohol intake to no more than 1 drink a day for non women and 2 drinks a day for men. One drink equals 12 oz of beer, 5 oz of wine, or 1 oz of hard liquor. General instructions Take jpft-fux-wdxifis and prescription medicines only as told by your health care provider. Exercise regularly. Aim for 150 minutes of moderate exercise or 75 minutes of vigorous exercise perweek. Ask your health care provider what exercises are safe for you. Keep all follow-up visits as told by your health care provider. This is important. Contact a health care provider if: Your symptoms get worse. You develop new symptoms, such as new palpitations. You feel depressed. Get help right away if: You have an episode of ventricular tachycardia that lasts 30 seconds or more. You have chest pain. You have trouble breathing. These symptoms may represent a serious problem that is an emergency. Do not wait to see if the symptoms will go away. Get medical help right away. Call your local emergency services (911 in the [place] Do not drive yourself to the hospital. Summary Ventricular tachycardia is a fast heartbeat that begins in the lower chambers of the heart. This condition can be life-threatening and should be treated immediately. This condition may be treated with medicines, electric shock, radiofrequency energy, surgery, or insertion of an implantable cardioverter defibrillator (ICD). Get help right away if you have chest pain, trouble breathing, or ventricular tachycardia symptoms that last more than 30 seconds. This information is not intended to replace advice given to you by your health care provider. Make sure you discuss any questions you have with your health care provider. Document Released: 11/07/2017 Document Revised: 08/29/2018 Document Reviewed: 11/07/2017 [employer] Patient Education 2020 [employer]. Additional Information VACCINATE! IT SAVES LIVES! Members of the community who have not yet received the COVID-19 vaccine and would like to receive it can visit one of [facility] vaccine clinics. There are many vaccine clinic locations within the [facility]. For locations and available times, please visit [email or web address]/. It is important to note that some COVID mobile vaccine clinics are held outdoors and may be canceled in rainy or stormy conditions. To learn more about pediatric vaccinations (ages 5-11), we invite you to visit the [employer] [facility] webpage. https://[email or web address].org/[email or web address] [email or web address] learn more about the COVID-19 vaccine, we invite you to visit the CDC website for a list of frequently asked questions.https://www.cdc.gov/coronavirus/2019-ncov/vaccines/faq.html [facility]ate[facility] Patient Portal Access Instructions: Stay connected with your healthcare team and access your personal medical information anytime with the [facility]ate[facility] Patient Portal. Please follow the directions below to create your flatev account: 1.Access the email account you provided upon registration to the hospital/physician office.2.Look for an invitation email from [facility].3.Open the email and access the invitation link: AcceptInvitation to flatev.4.Fill in the required smith to create your account. To access your account, visit [email or web address]. Click the blue button labeled Access Patient Portal and then log in with the username and password that you created in the steps above. You will be able to view your test results, lab results, a summary of your visits, upcoming appointments and more. There is also a convenient messaging option where you can send secure messages to your p rovider. In addition, you will have the ability to download any documents or summaries to your computer and/or send the information securely to a physician. Remember that your healthcare information is confidential, so carefully consider who you will allowto register on the [facility]atev Patient Portal for access to your information. You can also access the [facility] Patient Portal on the [facility] [facility] loren. Simply click on Patient Portal and then log into your account. If you would like to receive a full copy of your medical records, please contact the [facility] Medical Records Department by calling [phone], Saturday through Saturday between 8 a.m. and 4:30 p.m. HOW TO SAFELY DISPOSE OF PRESCRIPTION MEDICATIONS Please use one of the following methods to safely dispose of your unused medications. 1.Use a drug disposal kit: the drug disposal pouch allows you to safely discard your old and unuseddrugs. Ask your nurse to give you one when you are discharged.2.Visit a local take-back location: Many local pharmacies and police departments have programs that collect old and unwanted prescriptiondrugs. Call your local pharmacy or go to http://MaxxAthlete.Solar3D/5S8Yl2d to find one close to you.3.Make use of household items: Use cat litter or old coffee grounds to dispose medications if other options arenot available. Mix your drugs with these household products, seal them in an airtight container andthrow it into the garbage. Call [facility]: [phone] to be sure your drugs can be disposed of in this way. Some medicines may require a different approach.4.Never flush your medications down the toilet. IF YOU HAVE BEEN PRESCRIBED AN OPIOID FOR PAIN If you have been prescribed an opioid (such as hydrocodone, oxycodone or morphine), it is critical to understand the possible side effects and risks of opioid pain medications. Even when taken as directed, opioids can have several side effects including: Tolerance, meaning you might need to take more of a medication for the same pain relief. Nausea, vomiting and/or constipation. Sleepiness, dizziness, dry mouth, confusion, depression or itching. Physical dependence, meaning you have withdrawal symptoms when a medication is stopped, can develop within a few days. KNOW YOUR RESPONSIBILITIES It is important to know exactly how much and how often to take the opioid pain medications you are prescribed. Never take opioids in higher amounts or more often than prescribed. Do not combine opioids with alcohol or other drugs that cause drowsiness, such as benzodiazepines, also known as benzos, including diazepam and alprazolam, muscle relaxants or sleep aids. Never sell or share prescription opioids. This is illegal. Store opioids in a secure place and out of reach of others (including children, family, friends and visitors). The last page of this document has been signed and retained as a CHART COPY. Signatures Patient Education Materials Ventricular Tachycardia Medication Leaflets Tishwethasynaun My discharge plan and instructions have been reviewed and explained to me and I,WENDI MORALES understand my current condition and have read and understand these discharge instructions. I have received a written copy of the plan/instructions. If I have questions, I am aware that I should contact my doctor. Patient/Technical Translator Signature: Date/Time: Relationship to Patient: Witness Name/Signature: Date/Time: [id number] Discharge summary Date of Service 04/01/2023 Discharge Diagnosis Ventricular tachycardia, unspecified (I47.20 - ICD-10-CM) Cardiomyopathy, unspecified (I42.9 - ICD-10-CM) Paroxysmal atrial fibrillation (I48.0 - ICD-10-CM) longterm (current) use of anticoagulants (Z79.01 - ICD-10-CM) Atherosclerotic heart disease of [place] coronary artery without angina pectoris (I25.10 - ICD-10-CM) Hypertensive heart disease without heart failure (I11.9 - ICD-10-CM) Obstructive sleep apnea (adult) (pediatric) (G47.33 - ICD-10-CM) Cardiomegaly (I51.7 - ICD-10-CM) Additional Orders: Ordered: Discharge,04/01/23 15:29:00 EDT, Discharged to: Home Ordered: Discharge Activity,NO activity restrictions, 04/01/23 15:29:00 EDT Ordered: Discharge Diet,No changes were made to your diet during your hospital stay. Please resume your pre hospitalization diet on discharge., 04/01/23 15:29:00 EDT Discontinued: Eliquis 5 mg oral tablet,Dose : 5 mg = 1 tab(s), Oral, BID, 0 Refill(s), 121.6 Ordered: Tikosyn 250 mcg oral capsule,Dose : 250 mcg = 1 cap(s), Oral, q12h, # 180 cap(s), 0 Refill(s), Pharmacy: [facility] 188, cm, 03/29/23 5:50:00 EDT, Height Discontinued: sotalol 80 mg oral tablet,TAKE ONE-HALF TABLET BY MOUTH EVERY TWELVE HOURS Discontinued: spironolactone 25 mg oral tablet,TAKE ONE TABLET BY MOUTH DAILY Discontinued: valsartan 160 mg oral tablet,TAKE ONE TABLET BY MOUTH DAILY Hospital Course 13 beat ventricular tachycardia on Biotel Paroxysmal A-fib on sotalol/eliquis Asymptomatic sinus bradycardia Hypertension Concentric LVH Cardiomyopathy EF 45 to 50% (35% on Nuclear study) dilated ascending aorta 4.1 cm, root 4.3 cm [1] 58-year-old man with new cardiomyopathy, found to have ventricular tachycardia on heart monitor, this admitted for evaluation, left heart cath showed mild CAD, patient was found to be in AF RVR despite being on sotalol 40 and diltiazem, electrophysiology consulted, initiated dofetilide 250 mg p.o. twice daily, converted after the first dose, in NSR since 03/29/2020 3:11 PM, acceptable QTc, plan todischarge after the sixth dose on 04/01/2023 AM if continues to have uneventful course. Not on beta-ayala due to resting bradycardia. Allergies lisinopril (cough) Consults Consult to Physician - Ordered -- 03/29/23 8:30:00 EDT, MARY SMITH MD, Routine, Afib on sotalol Physical Exam Vitals and Measurements T: 36.7 C (Oral) TMIN: 36.4 C (Oral) TMAX: 36.9 C (Oral) HR: 69(Monitored) RR: 18 BP: 122/80 SpO2: 98% Weight Dosing Weight: 121.6 kg (03/29/23) General Appearance: Comfortable, not in acute distress Cardiac: S1, S2, no murmurs, regular rhythm, normal rate, no lower extremity edema, no crackles, noJVP distention, warm extremities. Lungs: No wheezes, normal chest expansion. Abdomen: No tenderness, no distention, normal bowel sounds. Musculoskeletal: No signs of acute synovitis. Neurological: Alert and oriented x3, no focal neurological deficits grossly. Psychiatric: Appropriate, normal mood. Code Status Code Status - Ordered -- 03/29/23 15:10:00 EDT, Full Code, Constant Order Admission Date 03/29/2023 Discharge Date 04/01/2023 Medications New Prescription dofetilide (Tikosyn 250 mcg oral capsule)1 cap by mouth every 12 hours. Refills: 0. Changed apixaban (apixaban 5 mg oral tablet)1 tab(s) by mouth two (2) times a day. Refills: 3. spironolactone (spironolactone 25 mg oral tablet)1 tab(s) by mouth once a day with a meal. valsartan (valsartan 160 mg oral tablet)1 tab(s) by mouth once a day. Discontinued aspirin (aspirin 81 mg oral delayed release tablet)1 tab(s) by mouth once a day. Refills: 4. dilTIAZem (Cartia XT 180 mg/24 hours oral capsule, extended release)1 cap by mouth once a day. sotalol (sotalol 80 mg oral tablet)TAKE ONE-HALF TABLET BY MOUTH EVERY TWELVE HOURS. Follow Up Follow Up with AGGIE RAM MD When 04/17/2023 01:30 PM EDT Where: [address] [facility] [place], [place] [id number]- [phone] Follow Up with Cardiac Rehab- [facility] When Why: The Cardiac Rehab department will call you to schedule you for phase 2. We left you a brochurewith information about cardiac rehab. If you have any questions please call [phone]. Where: [address] [address]- Follow Up with CHINA MORALES MD When Within 1-2 days Why: Please call the office to schedule a follow up appointment. Where: [address] [facility] [address] [place] [address]- Follow Up Appointments No qualifying data available. Follow Up Labs/Studies Discharge Labs No Follow-up Labs Discharge Studies No Follow-up Studies Discharge Diet Discharge Diet - Ordered -- No changes were made to your diet during your hospital stay. Please resume your pre hospitalization diet on discharge., 04/01/23 15:29:00 EDT Discharge Activity Discharge Activity - Ordered -- NO activity restrictions, 04/01/23 15:29:00 EDT Digitally Signed by JENNIFER VICTORIA MD on 04/01/2023 03:30 PM Digitally Signed by ALEYDA SHAH MD [id number] Cardiology Progress note Date of Service 03/31/2023 Chief Complaint VT Subjective Feels well, NAEO Objective Vitals and Measurements T: 36.5 C (Oral) TMIN: 36.4 C (Oral) TMAX: 37.0 C (Oral) HR: 47(Monitored) RR: 16 BP: 132/78 SpO2: 98% Intake and Output 7AM Yesterday to 7AM Today Intake and Output (Last 24 hours) Intake Output Total Summary Total Intake 0.00 Total Output 0.00 Fluid Balance 0.00 Physical Exam General Appearance: Comfortable, not in acute distress Cardiac: S1, S2, no murmurs, regular rhythm, normal rate, no lower extremity edema, no crackles, noJVP distention, warm extremities. Lungs: No wheezes, normal chest expansion. Abdomen: No tenderness, no distention, normal bowel sounds. Musculoskeletal: No signs of acute synovitis. Neurological: Alert and oriented x3, no focal neurological deficits grossly. Psychiatric: Appropriate, normal mood. Weight Dosing Weight: 121.6 kg (03/29/23) Medications Medications (16) Active Scheduled: (7) apixaban 5 mg tablet 5 mg 1 tab(s), Oral, BID atorvastatin 40 mg tablet 40 mg 1 tab(s), Oral, qDay dofetilide 250 mcg capsule 250 mcg 1 cap(s), Oral, q12h losartan 100 mg tablet 100 mg 1 tab(s), Oral, qDay Misc communication order 1 EA, Miscellaneous, Daily No metformin for 48 hrs post contrast 1 EA, Miscellaneous, Unscheduled spironolactone 25 mg tablet 25 mg 1 tab(s), Oral, qDayM Continuous: (0) PRN: (9) magnesium sulfate 4 gram(s)/100mL PMX 4 g 100 mL, IV Piggyback, AsDirected magnesium sulfate 50% (500mg/mL) 6 g 12 mL, IV Piggyback, AsDirected magnesium sulfate PMX 2 g 50 mL, IV Piggyback, AsDirected magnesium sulfate PMX 2 g 50 mL, IV Piggyback, AsDirected potassium bicarbonate-citric acid 20 mEq EFF tablet 40 mEq 2 tab(s), Oral, AsDirected potassium chloride (PMX) 20 mEq/100 mL 20 mEq 100 mL, IV Piggyback, AsDirected potassium chloride 20 mEq ER tablet 20 mEq 1 tab(s), Oral, AsDirected potassium chloride 20 mEq ER tablet 40 mEq 2 tab(s), Oral, AsDirected potassium chloride 20 mEq ER tablet 40 mEq 2 tab(s), Oral, AsDirected Lab Results No 36 Hour Lab Data EKG Electrocardiogram (EKG) - InProcess -- 03/30/23 21:09:00 EDT Electrocardiogram (EKG) - InProcess -- 03/31/23 8:00:00 EDT Assessment/Plan 13 beat ventricular tachycardia on Biotel Paroxysmal A-fib on sotalol/eliquis Asymptomatic sinus bradycardia Hypertension Concentric LVH Cardiomyopathy EF 45 to 50% (35% on Nuclear study) dilated ascending aorta 4.1 cm, root 4.3 cm [1] 58-year-old man with new cardiomyopathy, found to have ventricular tachycardia on heart monitor, this admitted for evaluation, left heart cath showed mild CAD, patient was found to be in AF RVR despite being on sotalol 40 and diltiazem, electrophysiology consulted, initiated dofetilide 250 mg p.o. twice daily, converted after the first dose, in NSR since 03/29/2020 3:11 PM, acceptable QTc, plan todischarge after the sixth dose on 04/01/2023 AM if continues to have uneventful course. Not on beta-ayala due to resting bradycardia. Digitally Signed by JENNIFER VICTORIA MD on 03/31/2023 06:11 PM [id number] Cardiology Progress note Date of Service 03/31/2023 Chief Complaint VT Subjective Feels well, NAEO Objective Vitals and Measurements T: 36.5 C (Oral) TMIN: 36.4 C (Oral) TMAX: 37.0 C (Oral) HR: 47(Monitored) RR: 16 BP: 132/78 SpO2: 98% Intake and Output 7AM Yesterday to 7AM Today Intake and Output (Last 24 hours) Intake Output Total Summary Total Intake 0.00 Total Output 0.00 Fluid Balance 0.00 Physical Exam General Appearance: Comfortable, not in acute distress Cardiac: S1, S2, no murmurs, regular rhythm, normal rate, no lower extremity edema, no crackles, noJVP distention, warm extremities. Lungs: No wheezes, normal chest expansion. Abdomen: No tenderness, no distention, normal bowel sounds. Musculoskeletal: No signs of acute synovitis. Neurological: Alert and oriented x3, no focal neurological deficits grossly. Psychiatric: Appropriate, normal mood. Weight Dosing Weight: 121.6 kg (03/29/23) Medications Medications (16) Active Scheduled: (7) apixaban 5 mg tablet 5 mg 1 tab(s), Oral, BID atorvastatin 40 mg tablet 40 mg 1 tab(s), Oral, qDay dofetilide 250 mcg capsule 250 mcg 1 cap(s), Oral, q12h losartan 100 mg tablet 100 mg 1 tab(s), Oral, qDay Mis communication order 1 EA, Miscellaneous, Daily No metformin for 48 hrs post contrast 1 EA, Miscellaneous, Unscheduled spironolactone 25 mg tablet 25 mg 1 tab(s), Oral, qDayM Continuous: (0) PRN: (9) magnesium sulfate 4 gram(s)/100mL PMX 4 g 100 mL, IV Piggyback, AsDirected magnesium sulfate 50% (500mg/mL) 6 g 12 mL, IV Piggyback, AsDirected magnesium sulfate PMX 2 g 50 mL, IV Piggyback, AsDirected magnesium sulfate PMX 2 g 50 mL, IV Piggyback, AsDirected potassium bicarbonate-citric acid 20 mEq EFF tablet 40 mEq 2 tab(s), Oral, AsDirected potassium chloride (PMX) 20 mEq/100 mL 20 mEq 100 mL, IV Piggyback, AsDirected potassium chloride 20 mEq ER tablet 20 mEq 1 tab(s), Oral, AsDirected potassium chloride 20 mEq ER tablet 40 mEq 2 tab(s), Oral, AsDirected potassium chloride 20 mEq ER tablet 40 mEq 2 tab(s), Oral, AsDirected Lab Results No 36 Hour Lab Data EKG Electrocardiogram (EKG) - InProcess -- 03/30/23 21:09:00 EDT Electrocardiogram (EKG) - InProcess -- 03/31/23 8:00:00 EDT Assessment/Plan 13 beat ventricular tachycardia on Biotel Paroxysmal A-fib on sotalol/eliquis Asymptomatic sinus bradycardia Hypertension Concentric LVH Cardiomyopathy EF 45 to 50% (35% on Nuclear study) dilated ascending aorta 4.1 cm, root 4.3 cm [1] 58-year-old man with new cardiomyopathy, found to have ventricular tachycardia on heart monitor, this admitted for evaluation, left heart cath showed mild CAD, patient was found to be in AF RVR despite being on sotalol 40 and diltiazem, electrophysiology consulted, initiated dofetilide 250 mg p.o. twice daily, converted after the first dose, in NSR since 03/29/2020 3:11 PM, acceptable QTc, plan todischarge after the sixth dose on 04/01/2023 AM if continues to have uneventful course. Not on beta-ayala due to resting bradycardia. Digitally Signed by JENNIFER VICTORIA MD on 03/31/2023 06:11 PM [id number] Cardiology Progress note Date of Service 03/30/2023 Chief Complaint VT Subjective Feels well, NSR since last night 11 pm Objective Vitals and Measurements T: 36.8 C (Oral) TMIN: 36.4 C (Oral) TMAX: 36.9 C (Oral) HR: 66(Monitored) RR: 18 BP: 144/88 SpO2: 96% Intake and Output 7AM Yesterday to 7AM Today Intake and Output (Last 24 hours) Intake Output Urine Voided 800.00 Total Summary Total Intake 0.00 Total Output 800.00 Fluid Balance -800.00 Physical Exam General Appearance: Comfortable, not in acute distress Cardiac: S1, S2, no murmurs, regular rhythm, normal rate, no lower extremity edema, no crackles, noJVP distention, warm extremities. Lungs: No wheezes, normal chest expansion. Abdomen: No tenderness, no distention, normal bowel sounds. Musculoskeletal: No signs of acute synovitis. Neurological: Alert and oriented x3, no focal neurological deficits grossly. Psychiatric: Appropriate, normal mood. Weight Dosing Weight: 121.6 kg (03/29/23) Medications Medications (16) Active Scheduled: (7) apixaban 5 mg tablet 5 mg 1 tab(s), Oral, BID atorvastatin 40 mg tablet 40 mg 1 tab(s), Oral, qDay dofetilide 250 mcg capsule 250 mcg 1 cap(s), Oral, q12h losartan 100 mg tablet 100 mg 1 tab(s), Oral, qDay Misc communication order 1 EA, Miscellaneous, Daily No metformin for 48 hrs post contrast 1 EA, Miscellaneous, Unscheduled spironolactone 25 mg tablet 25 mg 1 tab(s), Oral, qDayM Continuous: (0) PRN: (9) magnesium sulfate 4 gram(s)/100mL PMX 4 g 100 mL, IV Piggyback, AsDirected magnesium sulfate 50% (500mg/mL) 6 g 12 mL, IV Piggyback, AsDirected magnesium sulfate PMX 2 g 50 mL, IV Piggyback, AsDirected magnesium sulfate PMX 2 g 50 mL, IV Piggyback, AsDirected potassium bicarbonate-citric acid 20 mEq EFF tablet 40 mEq 2 tab(s), Oral, AsDirected potassium chloride (PMX) 20 mEq/100 mL 20 mEq 100 mL, IV Piggyback, AsDirected potassium chloride 20 mEq ER tablet 20 mEq 1 tab(s), Oral, AsDirected potassium chloride 20 mEq ER tablet 40 mEq 2 tab(s), Oral, AsDirected potassium chloride 20 mEq ER tablet 40 mEq 2 tab(s), Oral, AsDirected Lab Results 03/30 02:38 WBC: 9.0 Hgb: 15.4 Hct: 46.3 Platelet: 189 Neutrophil %: 71.3 Glucose Level: 103 Sodium Level: 142 Potassium Level: 3.8 BUN: 24.0 H Creatinine Lvl (s): 1.24 03/29 06:27 WBC: 7.0 Hgb: 15.4 Hct: 46.0 Platelet: 194 Neutrophil %: 70.1 Protime: 12.4 PT International Ratio: 1.0 Glucose Level: 99 Sodium Level: 144 Potassium Level: 4.0 BUN: 26.0 H Creatinine Lvl (s): 1.36 EKG EKG - Completed -- 03/29/23 5:55:00 EDT, admission Electrocardiogram (EKG) - InProcess -- 03/29/23 23:00:00 EDT, 2 hr post tikosyn Electrocardiogram (EKG) - InProcess -- 03/30/23 10:01:00 EDT, 2 hour post Tikosyn dose #2 Assessment/Plan 13 beat ventricular tachycardia on Biotel Paroxysmal A-fib on sotalol/eliquis Hypertension Concentric LVH Cardiomyopathy EF 45 to 50% (35% on Nuclear study) dilated ascending aorta 4.1 cm, root 4.3 cm [1] 58-year-old man with new cardiomyopathy, found to have ventricular tachycardia on heart monitor, this admitted for evaluation, left heart cath showed mild CAD, patient was found to be in AF RVR despite being on sotalol 40, electrophysiology consulted, initiated dofetilide 250 mg p.o. twice daily, co nverted after the first dose, in NSR since 03/29/2020 3:11 PM, acceptable QTc, plan to discharge after the sixth dose on 04/01/2020 3 AM if continues to have uneventful course. [1] History and Physical; GERMAN LINDER MD 03/29/2023 06:12 EDT Digitally Signed by JENNIFER VICTORIA MD on 03/30/2023 02:27 PM [facility] [id number] Cardiology Progress note Date of Service 03/30/2023 Chief Complaint [place] Subjective Feels well, NSR since last night 11 pm Objective Vitals and Measurements T: 36.8 C (Oral) TMIN: 36.4 C (Oral) TMAX: 36.9 C (Oral) HR: 66(Monitored) RR: 18 BP: 144/88 SpO2: 96% Intake and Output 7AM Yesterday to 7AM Today Intake and Output (Last 24 hours) Intake Output Urine Voided 800.00 Total Summary Total Intake 0.00 Total Output 800.00 Fluid Balance -800.00 Physical Exam General Appearance: Comfortable, not in acute distress Cardiac: S1, S2, no murmurs, regular rhythm, normal rate, no lower extremity edema, no crackles, noJVP distention, warm extremities. Lungs: No wheezes, normal chest expansion. Abdomen: No tenderness, no distention, normal bowel sounds. Musculoskeletal: No signs of acute synovitis. Neurological: Alert and oriented x3, no focal neurological deficits grossly. Psychiatric: Appropriate, normal mood. Weight Dosing Weight: 121.6 kg (03/29/23) Medications Medications (16) Active Scheduled: (7) apixaban 5 mg tablet 5 mg 1 tab(s), Oral, BID atorvastatin 40 mg tablet 40 mg 1 tab(s), Oral, qDay dofetilide 250 mcg capsule 250 mcg 1 cap(s), Oral, q12h losartan 100 mg tablet 100 mg 1 tab(s), Oral, qDay Misc communication order 1 EA, Miscellaneous, Daily No metformin for 48 hrs post contrast 1 EA, Miscellaneous, Unscheduled spironolactone 25 mg tablet 25 mg 1 tab(s), Oral, qDayM Continuous: (0) PRN: (9) magnesium sulfate 4 gram(s)/100mL PMX 4 g 100 mL, IV Piggyback, AsDirected magnesium sulfate 50% (500mg/mL) 6 g 12 mL, IV Piggyback, AsDirected magnesium sulfate PMX 2 g 50 mL, IV Piggyback, AsDirected magnesium sulfate PMX 2 g 50 mL, IV Piggyback, AsDirected potassium bicarbonate-citric acid 20 mEq EFF tablet 40 mEq 2 tab(s), Oral, AsDirected potassium chloride (PMX) 20 mEq/100 mL 20 mEq 100 mL, IV Piggyback, AsDirected potassium chloride 20 mEq ER tablet 20 mEq 1 tab(s), Oral, AsDirected potassium chloride 20 mEq ER tablet 40 mEq 2 tab(s), Oral, AsDirected potassium chloride 20 mEq ER tablet 40 mEq 2 tab(s), Oral, AsDirected Lab Results 03/30 02:38 WBC: 9.0 Hgb: 15.4 Hct: 46.3 Platelet: 189 Neutrophil %: 71.3 Glucose Level: 103 Sodium Level: 142 Potassium Level: 3.8 BUN: 24.0 H Creatinine Lvl (s): 1.24 03/29 06:27 WBC: 7.0 Hgb: 15.4 Hct: 46.0 Platelet: 194 Neutrophil %: 70.1 Protime: 12.4 PT International Ratio: 1.0 Glucose Level: 99 Sodium Level: 144 Potassium Level: 4.0 BUN: 26.0 H Creatinine Lvl (s): 1.36 EKG EKG - Completed -- 03/29/23 5:55:00 EDT, admission Electrocardiogram (EKG) - InProcess -- 03/29/23 23:00:00 EDT, 2 hr post tikosyn Electrocardiogram (EKG) - InProcess -- 03/30/23 10:01:00 EDT, 2 hour post Tikosyn dose #2 Assessment/Plan 13 beat ventricular tachycardia on Biotel Paroxysmal A-fib on sotalol/eliquis Hypertension Concentric LVH Cardiomyopathy EF 45 to 50% (35% on Nuclear study) dilated ascending aorta 4.1 cm, root 4.3 cm [1] 58-year-old man with new cardiomyopathy, found to have ventricular tachycardia on heart monitor, this admitted for evaluation, left heart cath showed mild CAD, patient was found to be in AF RVR despite being on sotalol 40, electrophysiology consulted, initiated dofetilide 250 mg p.o. twice daily, co nverted after the first dose, in NSR since 03/29/2020 3:11 PM, acceptable QTc, plan to discharge after the sixth dose on 04/01/2020 3 AM if continues to have uneventful course. [1] History and Physical; GERMAN LINDER MD 03/29/2023 06:12 EDT Digitally Signed by JENNIFER VICTORIA MD on 03/30/2023 02:27 PM [id number] Note EP BRIEF NOTERe: AFIB, USVT.PCP: AndrewCV: Uday / Hoa Patient: Wendi Morales medical record# [id number] IMPRESSION: 1. Paroxysmal Atrial Fibrillation reported (but paroxysmal should stop on its own and not need DCC). 2. Unsustained Ventricular Tachycardia. 3. Sinus bradycardia on higher dose sotalol. 4. HTN hd with mild LVH, LVEF 47%, NL LA/RA. 5. Mild Obstructive Sleep Apnea. RECOMMENDATIONS: 1. Agree with discontinuation of sotalol, diltiazem. 2. Tikosyn 250mcg q12h, first dose 8pm today. Monitor in hospital 3 days. 3. Await Cath results. 4. Anticoagulate as able. 5. Patient may be a candidate for ablative therapies at a future outpatient setting. Thanks. Kimo Viramontes MD, [facility], [facility] pager [phone] Digitally Signed by KIMO VIRAMONTES MD on 03/29/2023 02:17 PM [facility] [id number] Consult note Date of Service 03/29/2023 Reason for Consultation Atrial fibrillation Referring Physician Dr. Linder CVC: Dr. Ram History of Present Illness Wendi is a 58-year-old male currently admitted for episodes of nonsustained VT noted on Holter monitor. Patient was admitted to an outside hospital 2 weeks ago for atrial fibrillation with RVR. He was medically managed and placed on sotalol and Eliquis with mormonism of normal sinus rhythm. He was discharged with a director corporate security. He was notified of episodes of nonsustained VT and was advised to present to the local emergency department. [facility] Holter monitor noted nonsustained VT of 13 beats at190 bpm, and atrial fibrillation with RVR 140 to 150 bpm. PMH: 1. Paroxysmal atrial fibrillation 2. Hypertension 3. Cardiomyopathy EF 47% per TTE, 35% on nuclear study 4. Dilated ascending aorta 4.1 cm, aortic root 4.3 cm 5. Mild EM 6. LVH 7. NSVT- non ischemic mediated Patient was initially diagnosed with atrial fibrillation in January 2021. Has undergone MAREK/cardioversion in the past. Was previously managed on diltiazem and aspirin up until recent hospitalization. He was previously not on anticoagulation due to low [id number] score. Recently admitted to [facility] 03/13/2023 through 03/16/2023 for atrial fibrillation with RVR and frequent PVCs noted on director corporate security. Cardiac enzymes were negative at that time. Lexiscan stress test was negative for ischemia. Patient was initiated on sotalol 40 mg twice daily and cardizem was discontinued. Patient was bradycardic with HR 40-50s however he was asymptomatic and sotalol was continued. He was discharged on Eliquis 5 mg twice daily. Echocardiogram performed 03/14/2023 at outside hospital demonstrates EF 47%, mild concentric LVH, nosignificant valvular pathology. Aortic root dilated at 4.2 cm, proximal ascending aorta 4.1 cm. Nuclear stress test performed 03/14/2023 at [facility] demonstrates no conclusive evidence of reversible ischemia or infarct, EF 35% with diffuse hypokinesis of left ventricle. EKG portion negative for ischemia. Urgent Holter report reviewed from 03/28/2023 demonstrating atrial fibrillation, PVCs with left bundle morphology, episode of 13-14 beat nonsustained monomorphic VT. EKG on arrival demonstrates atrial fibrillation, 90 bpm, QTc 439 ms, QRS duration 100 ms. Labs reviewed from today demonstrate H&H 15.4/46, platelets 194, BUN 26, creatinine 1.36, GFR 54, potassium 4, magnesium 1.7, troponin 11, proBNP 1159. Telemetry reviewed since arrival: Heart rate ranging 83 100, with episodes of atrial fibrillation with RVR with heart rate in the 120s 130s. Underwent left heart catheterization to rule out ischemia today. Official report pending at time ofdictation. Per nursing report, no evidence of obstructive CAD. Patient reports he had a brief episode of dizziness that occurred last night otherwise he has remained asymptomatic. He denies chest pain, chest pressure, chest tightness, syncope, dyspnea, or bilateral lower extremity edema. Review of Systems Constitutional: Negative for weight gain, weight loss, fatigue Eyes: Negative for visual changes Ears, Nose, Mouth & Throat: Negative for ear pain, nose drainage, sore throat Cardiovascular: Negative for chest pain, chest pressure, diaphoresis, palpitation, syncope Vascular-negative for claudication, edema Respiratory: Negative for shortness of breath or cough Gastrointestinal: Negative for nausea, reflux, abdominal pain Genitourinary: Negative for dysuria Musculoskeletal: Negative for joint pain. Patient can exercise. Skin: No for rash Neurological: Negative for dizziness Psychiatric: Negative for depression, anxiety Hematologic/Lymphatic: Negative for excessive bruising Physical Exam Vitals and Measurements T: 36.7 C (Oral) HR: 100(Monitored) RR: 18 BP: 128/90 SpO2: 99% HT: 188 cm WT: 121.6 kg BMI: 34.4 Weight Dosing Weight: 121.6 kg (03/29/23) GENERAL: Well nourished; no acute distress. PSYCHIATRIC: Alert and oriented x 3, cooperative, mood normal, affect normal. HEAD: Normocephalic, nontraumatic head. EYES: No drainage noted. NECK: Supple, no posterior midline tenderness. Normal range of motion. No JVD noted. CARDIAC: Regular rate, regular rhythm, no murmurs noted. No S3 or S4 noted. RESPIRATORY: Regular rate and depth; no distress, lung sounds clear bilaterally. ABDOMEN: Soft, nontender. Normal bowel sounds. EXTREMITIES: No edema noted. Dorsalis Pedis pulse +2/4 bilaterally. Posterior Tibialis pulse +2/4 bilaterally. DERM: Warm and dry. Normal turgor Lab Results 03/29 06:27 WBC: 7.0 Hgb: 15.4 Hct: 46.0 Platelet: 194 Neutrophil %: 70.1 Protime: 12.4 PT International Ratio: 1.0 Glucose Level: 99 Sodium Level: 144 Potassium Level: 4.0 BUN: 26.0 H Creatinine Lvl (s): 1.36 Assessment/Plan 1. Paroxysmal atrial fibrillation 2. Hypertension 3. Cardiomyopathy EF 47% per TTE, 35% on nuclear study 4. Dilated ascending aorta 4.1 cm, aortic root 4.3 cm 5. Mild EM 6. LVH 7. NSVT- non ischemic mediated Patient remains in atrial fibrillation despite sotalol. During recent hospitalization patient reportedly became bradycardic with heart rate in the 40s to 50s while on sotalol and in normal sinus rhythm. Due to this I would avoid uptitrating sotalol therapy and consider Tikosyn administration with close monitoring of QTc. Continue eliquis 5 mg BID. Maintain K>4, Mg>2 If patient does not convert with Tikosyn could consider MAREK/cardioversion. Patient has received anticoagulation via Eliquis x2 weeks therefore will require MAREK prior. Holter monitor concerning for episodes of nonsustained VT. Patient also noted to have occasional PVCs. Cardiac catheterization performed today did not demonstrate obstructive CAD, ruling out ischemicpathology. Recommend patient follow-up with EP on an outpatient basis with consideration for outpatient ablative therapies for long-term rhythm maintenance. Split shared with Dr. Viramontes I personally reviewed the patient s recent medications, orders, vitals, labs, and X ray reports/images. Also I personally reviewed recent cardiac telemetry and other pertinent available cardiac studies and images including EKG, ECHO and cardiac catheterization images. Medications were reviewed and changes were made in EMR. This dictation was performed using voice recognition software may include grammatical and or spelling errors. Problem List/Past Medical History Ongoing Atrial fibrillation Hypertension Historical No qualifying data Procedure/Surgical History Full sleep study: 10/25/21 Appendectomy Medications Inpatient apixaban, 5 mg= 1 tab(s), Oral, BID aspirin 81 mg oral delayed release tablet, 81 mg= 1 tab(s), Oral, qDay Cozaar, 100 mg= 1 tab(s), Oral, qDay Lipitor, 40 mg= 1 tab(s), Oral, qDay magnesium sulfate for IV bolus, 2 gram(s)= 50 mL, IV Piggyback, AsDirected, PRN magnesium sulfate for IV bolus, 4 gram(s)= 100 mL, IV Piggyback, AsDirected, PRN magnesium sulfate for IV bolus potassium chloride, 20 mEq= 1 tab(s), Oral, AsDirected, PRN potassium chloride, 40 mEq= 2 tab(s), Oral, AsDirected, PRN potassium chloride, 40 mEq= 2 tab(s), Oral, AsDirected, PRN potassium chloride bolus, 20 mEq= 100 mL, IV Piggyback, AsDirected, PRN spironolactone, 25 mg= 1 tab(s), Oral, qDayM Home apixaban 5 mg oral tablet, 5 mg= 1 tab(s), Oral, BID, 3 refills aspirin 81 mg oral delayed release tablet, 81 mg= 1 tab(s), Oral, qDay, 4 refills, Not taking Cartia XT 180 mg/24 hours oral capsule, extended release, 180 mg= 1 cap(s), Oral, qDay Eliquis 5 mg oral tablet, 5 mg= 1 tab(s), Oral, BID sotalol 80 mg oral tablet spironolactone 25 mg oral tablet, 25 mg= 1 tab(s), Oral, qDayM spironolactone 25 mg oral tablet valsartan 160 mg oral tablet, 160 mg= 1 tab(s), Oral, qDay valsartan 160 mg oral tablet Allergies lisinopril (cough) Social History Alcohol Use: None., 02/15/2021 Nutrition/Health Caffeine intake amount: Occassional, not daily., 02/20/2021 Substance Abuse Use: Never., 02/15/2021 Tobacco Nicotine Use: Former smoker, quit more than 30 days ago. Type: Cigarettes. Tobacco use per day: 10., 02/20/2021 Family History Asthma: Grandparent. Diabetes: Grandparent. Heart failure: Grandparent. High blood pressure: Father. Immunizations No qualifying data available. Digitally Signed by SAM GOMEZ on 03/29/2023 02:25 PM Digitally Signed by SAM GOMEZ on 03/29/2023 02:32 PM Digitally Signed by KIMO VIRAMONTES MD on 03/29/2023 04:45 PM [facility] [id number] Evaluation + Plan noteExtracted from: Title:History and Physical Author:GERMAN LINDER MD Date:03/29/23 13 beat ventricular tachycar luz on Biotel Paroxysmal A-fib on sotalol/eliquis Hypertension Concentric LVH Cardiomyopathy EF 45 to 50% (35% on Nuclear study) dilated ascending aorta 4.1 cm, root 4.3 cm Patient recently had a stress test which showed no evidence of ischemia or infarction and LVEF was noted to be 35%. However in light of new nonsustained VT noted on Biotel we will plan for left heart catheterization today. Continue aspirin. Start statins. We will hold off on metoprolol in light of patient reporting bradycardia recently. Patient is also in A-fib. Only on sotalol 40 mg twice daily. Will appreciate EP recommendations. On Eliquis to decrease risk of stroke this was started only 2 weeks ago. Continue valsartan and Aldactone. LVEF on recent stress test was noted to be 35%. Addendum by JUAN LUIS SHETH MD on March 29, 2023 08:43:53 EDT I have personally seen, examined, and evaluated the patient on the encounter date. I have reviewed the fellow s documentation and agree with the fellow s findings and plan as documented, unless otherwise stated. I WOULD ADD: EF WAS 45-50% BY RECENT ECHO. Risks of proceeding to left heart catheterization were explained and he is willing to proceed. Future Appointments Appointment Date:04/17/2023 01:30:00 PM Scheduled Provider: Location:[facility] Appointment Type:CV OV Appointment Date:05/27/2023 01:30:00 PM Scheduled Provider: Location:[facility] Appointment Type:CV OV Hospital Follow Up Future Scheduled Tests Laboratory* A1C Hemoglobin 05/21/22 * Lipid Profile 05/21/22 [facility] 06-30-2023 History and physical note Date of Service 03/29/2023 Chief Complaint VT History of Present Illness This is a 58-year-old male who presents to the hospital due to his bilateral monitor showing short runs of nonsustained VT. Patient has atrial fibrillation. He was recently admitted to the outside hospital 2 weeks ago for A-fib with RVR. He was started on sotalol and Eliquis. Patient reports being in sinus rhythm at the time of discharge. He had a director corporate security ordered to evaluate A-fib burden and due to some episodesof bradycardia. Yesterday patient was noted to have short runs of nonsustained VT. He was advised to come to the emergency department. Patient is currently admitted for further management. Troponin within normal limits. Patient denies any syncope chest pain pressure but does endorse palpitations that started last night. Patient is currently in A-fib. Review of Systems 12 point ROS reviewed and negative unless stated above. Physical Exam Vitals and Measurements HT: 188 cm WT: 121.6 kg BMI: 34.4 Weight Dosing Weight: 121.6 kg (03/29/23) General Appearance: in no acute distress. Alert. EENT: No thyroid disease. ocular movements intact Cardiac: RRR. S1 and S2. no murmurs or rubs. Lungs: Clear breath sounds. No wheeze or crackles noted. Abdomen: soft. non tender. bowel sounds audible Neurological: alert and oriented. Skin: warm. dry Lab Results No 36 Hour Lab Data Assessment/Plan 13 beat ventricular tachycardia on Biotel Paroxysmal A-fib on sotalol/eliquis Hypertension Concentric LVH Cardiomyopathy EF 45 to 50% (35% on Nuclear study) dilated ascending aorta 4.1 cm, root 4.3 cm Patient recently had a stress test which showed no evidence of ischemia or infarction and LVEF was noted to be 35%. However in light of new nonsustained VT noted on Biotel we will plan for left heartcatheterization today. Continue aspirin. Start statins. We will hold off on metoprolol in light of patient reporting bradycardia recently. Patient is also in A-fib. Only on sotalol 40 mg twice daily. Will appreciate EP recommendations. OnEliquis to decrease risk of stroke this was started only 2 weeks ago. Continue valsartan and Aldactone. LVEF on recent stress test was noted to be 35%. Problem List/Past Medical History Ongoing Atrial fibrillation Hypertension Historical No qualifying data Procedure/Surgical History Full sleep study: 10/25/21 Appendectomy Medications Home Medications (8) Active apixaban 5 mg oral tablet 5 mg = 1 tab(s), Oral, BID aspirin 81 mg oral delayed release tablet 81 mg = 1 tab(s), Oral, qDay Cartia XT 180 mg/24 hours oral capsule, extended release 180 mg = 1 cap(s), Oral, qDay Eliquis 5 mg oral tablet 5 mg = 1 tab(s), Oral, BID sotalol 80 mg oral tablet spironolactone 25 mg oral tablet 25 mg = 1 tab(s), Oral, qDayM spironolactone 25 mg oral tablet valsartan 160 mg oral tablet 160 mg = 1 tab(s), Oral, qDay Allergies lisinopril (cough) Social History Alcohol Use: None., 02/15/2021 Nutrition/Health Caffeine intake amount: Occassional, not daily., 02/20/2021 Substance Abuse Use: Never., 02/15/2021 Tobacco Nicotine Use: Former smoker, quit more than 30 days ago. Type: Cigarettes. Tobacco use per day: 10., 02/20/2021 Family History Asthma: Grandparent. Diabetes: Grandparent. Heart failure: Grandparent. High blood pressure: Father. Immunizations No qualifying data available. Code Status No qualifying data available. Digitally Signed by GERMAN LINDER MD on 03/29/2023 08:36 AM Digitally Signed by GERMAN LINDER MD on 03/29/2023 08:36 AM [facility] [id number] History and physical note Date of Service 03/29/2023 Chief Complaint VT History of Present Illness This is a 58-year-old male who presents to the hospital due to his bilateral monitor showing short runs of nonsustained VT. Patient has atrial fibrillation. He was recently admitted to the outside hospital 2 weeks ago for A-fib with RVR. He was started on sotalol and Eliquis. Patient reports being in sinus rhythm at the time of discharge. He had a director corporate security ordered to evaluate A-fib burden and due to some episodesof bradycardia. Yesterday patient was noted to have short runs of nonsustained VT. He was advised to come to the emergency department. Patient is currently admitted for further management. Troponin within normal limits. Patient denies any syncope chest pain pressure but does endorse palpitations that started last night. Patient is currently in A-fib. Review of Systems 12 point ROS reviewed and negative unless stated above. Physical Exam Vitals and Measurements HT: 188 cm WT: 121.6 kg BMI: 34.4 Weight Dosing Weight: 121.6 kg (03/29/23) General Appearance: in no acute distress. Alert. EENT: No thyroid disease. ocular movements intact Cardiac: RRR. S1 and S2. no murmurs or rubs. Lungs: Clear breath sounds. No wheeze or crackles noted. Abdomen: soft. non tender. bowel sounds audible Neurological: alert and oriented. Skin: warm. dry Lab Results No 36 Hour Lab Data Assessment/Plan 13 beat ventricular tachycardia on Biotel Paroxysmal A-fib on sotalol/eliquis Hypertension Concentric LVH Cardiomyopathy EF 45 to 50% (35% on Nuclear study) dilated ascending aorta 4.1 cm, root 4.3 cm Patient recently had a stress test which showed no evidence of ischemia or infarction and LVEF was noted to be 35%. However in light of new nonsustained VT noted on Biotel we will plan for left heartcatheterization today. Continue aspirin. Start statins. We will hold off on metoprolol in light of patient reporting bradycardia recently. Patient is also in A-fib. Only on sotalol 40 mg twice daily. Will appreciate EP recommendations. OnEliquis to decrease risk of stroke this was started only 2 weeks ago. Continue valsartan and Aldactone. LVEF on recent stress test was noted to be 35%. Problem List/Past Medical History Ongoing Atrial fibrillation Hypertension Historical No qualifying data Procedure/Surgical History Full sleep study: 10/25/21 Appendectomy Medications Home Medications (8) Active apixaban 5 mg oral tablet 5 mg = 1 tab(s), Oral, BID aspirin 81 mg oral delayed release tablet 81 mg = 1 tab(s), Oral, qDay Cartia XT 180 mg/24 hours oral capsule, extended release 180 mg = 1 cap(s), Oral, qDay Eliquis 5 mg oral tablet 5 mg = 1 tab(s), Oral, BID sotalol 80 mg oral tablet spironolactone 25 mg oral tablet 25 mg = 1 tab(s), Oral, qDayM spironolactone 25 mg oral tablet valsartan 160 mg oral tablet 160 mg = 1 tab(s), Oral, qDay Allergies lisinopril (cough) Social History Alcohol Use: None., 02/15/2021 Nutrition/Health Caffeine intake amount: Occassional, not daily., 02/20/2021 Substance Abuse Use: Never., 02/15/2021 Tobacco Nicotine Use: Former smoker, quit more than 30 days ago. Type: Cigarettes. Tobacco use per day: 10., 02/20/2021 Family History Asthma: Grandparent. Diabetes: Grandparent. Heart failure: Grandparent. High blood pressure: Father. Immunizations No qualifying data available. Code Status No qualifying data available. Digitally Signed by GERMAN LINDER MD on 03/29/2023 08:36 AM Digitally Signed by GERMAN LINDER MD on 03/29/2023 08:36 AM [facility] [id number] NAME ACCOUNT SEX AGE ADMIT DISCHARGE PT MED. RECORD# NUMBER DATE DATE TYPE WENDI MORALES [id number] M 58 03/13/23 03/16/23 1 [id number] ROOM: [facility] DATE OF : 1965 ATTENDING PHYSICIAN: Jayme Carrera ADMITTING DIAGNOSIS: Atrial fibrillation. FINAL DIAGNOSES: 1. Atrial fibrillation. 2. Frequent ventricular arrhythmia related to the above when his heart rate is in excess of 160-170. PROCEDURES: Echocardiogram. CONSULTATIONS: Cardiology. HISTORY OF PRESENT ILLNESS: This is a 58-year-old gentleman who presented to the hospital when his physician received a call pertinent to ventricular arrhythmia. The patient did have a Holter monitor on to monitor for atrial arrhythmia, and it was reported he has frequent PVCs, and the patient was instructed to come to the hospital. He was evaluated and admitted. Cardiac markers were negative. An EKG was unremarkable. The rest of his evaluation was negative. HOSPITAL COURSE: He underwent an echocardiogram, which revealed borderline function. His stress test was negative for ischemia. At that point, it was believed that his frequent PVCs were related to the atrial fibrillation with rapid ventricular response, reaching almost 200 and resulted in relative ischemia without a positive troponin. At that point, the decision was to continue treatment for atrial fibrillation. The patient was initiated on sotalol. He did receive one dose of Cardizem, and this stopped due to the severe bradycardia. He remained with heart fluctuating in the upper 40s and 50s at rest, but he was asymptomatic in that regard, and the patient then was discharged home. MEDICATIONS ON DISCHARGE: The patient was discharged on the following medications: (1) Sotalol 40 mg twice a day. (2) Eliquis 5 mg twice a day. (3) Tylenol as needed. (4) Aspirin 81 mg daily. (5) Valsartan 160 mg daily. (6) Spironolactone 25 mg daily. DISCHARGE INSTRUCTIONS/PLAN: Diet: Regular, [id number]. Activity as Page 1 of 2 WENDI MORALES Discharge Summary WENDI MORALES : 1965 tolerated. Follow up with Cardiology and primary care. Dictated By: Jayme Carrera MD 03/16/23 12:30 JOB #: [id number] Transcribed By: isabela 03/16/23 12:51 Electronically signed by: E-Sign: JAYME CARRERA MD 03/19/23 09:41 Page 2 of 2 [facility]END[facility] PHYSICAL NAME ACCOUNT SEX AGE ADMIT DISCHARGE PT MED. RECORD# NUMBER DATE DATE TYPE WENDI MORALES [id number] M 58 03/13/23 1 D [id number] ROOM: [facility] DATE OF : [birth year] DICTATING PHYSICIAN: Jayme Carrera CHIEF COMPLAINT: Heart racing. HISTORY OF PRESENT ILLNESS: This is a 58-year-old male with known history of paroxysmal atrial fibrillation, hypertension, and obesity. He follows with Dr. Ram as an outpatient. An event monitor was placed on Saturday. He had atrial fibrillation with rapid ventricular response, as well as SVT. He was sent to the emergency room where he was in atrial fibrillation and heart rate was elevated. She recommended admission, and he was admitted to the Special Care Unit. He was initiated on Sotalol and stress test was completed this morning with results pending. Upon evaluation, he states he gets intermittent palpitations and racing heart. He does not have any chest pain. He was on Eliquis he stated in the past, and he was only kept on it for 1 month. PAST MEDICAL HISTORY: (1) Atrial fibrillation with rapid ventricular response, paroxysmal. (2) Hypertension. (3) Obesity with BMI over 34. (4) Previous left ankle fracture. PAST SURGICAL HISTORY: (1) Appendectomy. (2) Left ankle surgery. MEDICATIONS: Aspirin 81 mg daily, diltiazem extended release 180 mg daily, spironolactone 25 mg daily, Valsartan 160 mg daily. ALLERGIES: Lisinopril. FAMILY HISTORY: Both parents are alive and healthy. No history of atrial fibrillation. No cancer in the family. He did have a grandfather with congestive heart failure in his 80s. SOCIAL HISTORY: He is . He lives at home with his spouse. He has 5 children and multiple grandchildren. He does not smoke nor drink alcohol. REVIEW OF SYSTEMS: He denies any headache, acute visual changes. He does wear glasses. No fever or chills. No cough. He has not had chest pain or shortness of breath. He does have some episodes of rapid heartbeat. No bowel or bladder changes. No lower extremity edema. No other complaints. PHYSICAL EXAMINATION GENERAL APPEARANCE: The patient was sitting on the side of the bed alert, Page 1 of 3 WENDI MORALES History & Physical WENDI MORALES :1965 pleasant, and cooperative 58-year-old male. VITAL SIGNS: Blood pressure 131/101, heart rate 96, respirations 14, temperature 98.1, oxygen saturation 99 to 100% on room air, weight 272 pounds with BMI of 34.92. HEENT: Unremarkable. NECK: Neck is supple. No JVD. LUNGS: Normal respiratory effort, clear to auscultation bilaterally. HEART: Irregularly irregular. ABDOMEN: Positive bowel sounds, soft and nontender. EXTREMITIES: Free of edema. NEUROLOGIC: He is alert and oriented. Mood, affect, and memory within normal limits. Speech is clear. He answers questions appropriately. DIAGNOSTIC DATA: Reviewed and on chart. CBC is unremarkable. Sodium is 140, potassium 3.7, BUN 16, creatinine 1.49, and that was on admission. This morning, potassium is 4.0, creatinine 1.36. Troponins are negative. TSH is within normal range. Lipid profile shows HDL of 37. IMPRESSION: 1. Supraventricular tachycardia. 2. Atrial fibrillation with rapid ventricular response. 3. Hypertension. 4. Obesity. PLAN: He is recommended admission for cardiology, and I will continue to follow medically. He was appropriately placed on Eliquis, which he will likely need to be on long-term and magnesium was replaced. He was initiated on Sotalol. He had a nuclear stress test today, and results are pending. At this time, heart rate is stable and he is feeling much better. I evaluated the patient myself the above accurate E&M is done by me Benigno Carrera MD Dictated by kemal Johnson for Jayme Carrera M.D. 03/14/23 10:35 JOB #: [id number] Transcribed By: am 03/14/23 12:19 Electronically signed by: E-Sign: JAYME CARRERA MD 03/19/23 09:39 Page 2 of 3 WENDI MORALES History & Physical WENDI MORALES :1965 Update to H&P: [ ] No changes: I have examined the patient and reviewed the H&P and there are no changes. [ ] As previously dictated with the following changes: ____ ____ ____ PHYSICIAN SIGNATURE: TIME: DATE: Page 3 of 3 WENDI MORALES History & PhysicalJoel [facility] course Narrative No data available for this section [facility] Summary Purpose Family History Brother (s) Status:Active Comments:0. Father Status:Active Comments:1943 - HTN. Maternal Grandfather Status:Active Comments:CH F 80's. Mother Status:Active Comments:194. Sister (s) Status:Active Comments:2. A&W. Brother (s) Status:Active Comments:0. Father Status:Active Comments:1943 - HTN. Maternal Grandfather Status:Active Comments:CH F 80's. Mother Status:Active Comments:194. Sister (s) Status:Active Comments:2. A&W. Brother (s) Status:Active Comments:0. Father Status:Active Comments:1943 - HTN. Maternal Grandfather Status:Active Comments:CH F 80's. Mother Status:Active Comments:194. Sister (s) Status:Active Comments:2. A&W. Brother (s) Status:Active Comments:0. Father Status:Active Comments:1943 - HTN. Maternal Grandfather Status:Active Comments:CH F 80's. Mother Status:Active Comments:194. Sister (s) Status:Active Comments:2. A&W. Brother (s) Status:Active Comments:0. Father Status:Active Comments:1943 - HTN. Maternal Grandfather Status:Active Comments:CH F 80's. Mother Status:Active Comments:194. Sister (s) Status:Active Comments:2. A&W. Brother (s) Status:Active Comments:0. Father Status:Active Comments:1943 - HTN. Maternal Grandfather Status:Active Comments:CH F 80's. Mother Status:Active Comments:194. Sister (s) Status:Active Comments:2. A&W. Brother (s) Status:Active Comments:0. Father Status:Active Comments:1942 - HTN. Maternal Grandfather Status:Active Comments:CH F 80's. Mother Status:Active Comments:194. Sister (s) Status:Active Comments:2. A&W. Advance Directives No Advanced Directives Records FoundNo Advanced Directives Records FoundNo Advanced Directives Records Found Additional Source Comments (unrecognized sect ion and content) No Status Records FoundNo Status Records FoundNo Status Records Found INFORMATION SOURCE (unrecogn ized section and content) DATE CREATED AUTHOR AUTHOR'S ORGANIZ ATION 07/26/2023 [facility] ([place]) DATE CREATED AUTHOR AUTHOR'S ORGANIZ ATION 10/12/2023 [facility] Patient Care team informatio n (unrecognized section and content) Care Team Personnel Name: CHINA MORALES MD Member Role: Primary Care Physician Address: Address: [address] [place] [address]- Care Team Related Persons Name: PRAVEEN MORALES Care Team Personnel Name: CHINA MORALES MD Member Role: Primary Care Physician Address: Address: [address] [place] [address] Care Team Related Persons Name: PRAVEEN MORALES FOR RECORDS PERTAINING TO PATIENTS WHO ARE OR HAVE BEEN ENROLLED IN A CHEMICAL DEPENDENCY/SUBSTANCEABUSE PROGRAM, SOME INFORMATION MAY BE OMITTED. This clinical summary was aggregated from multiple sources. Caution should be exercised in using it in the provision of clinical care. This summary normalizes information from multiple sources, and as a consequence, information in this document may materially change the coding, format and clinical context of patient data. In addition, data may be omitted in some cases. CLINICAL DECISIONS SHOULD BE BASED ON THE PRIMARY CLINICAL RECORDS. [facility]. provides no warranty or guarantee of the accuracy or completeness of information in this document.
== END | disposition home or self-care (01) ==
PROVIDERS: PCP Family Medicine; Visit Provider Urology
DX: C61 Malignant neoplasm of prostate (principal)
CPT/HCPCS: 78306; A9503

== ENCOUNTER → 2024-06-09 | Outpatient (CLI) | payer OTHER, SELFPAY ==
--- NOTE | 2024-06-09 11:00 | PET_ITS ---
EXAMINATION: 18 F Pylarify PET-CT HISTORY: A 59-year-old male with history of prostate carcinoma presenting for apparent initial staging examination. COMPARISON EXAMINATION: None available INDEX LESION SIZE PROMISE SCORE SUV INTERPRETATION Prostate gland right of the midline 27.3-mm (largest) 2 8.8 (max) Fulfills quantitative criteria for viable neoplasm TECHNIQUE: Following the intravenous administration of 9.73 mCi of 18 F Pylarify via the left antecubital fossa, image acquisitions of the head, neck, chest, abdomen and pelvis to the level of the mid thigh at 73 minutes post-tracer distribution reveal: The examination was interpreted using the EANM (Estefania et al., Journal of Nuclear Medicine Molecular Imaging 44:1622, 2017) and PROMISE (Mahi et al., Journal of Nuclear Medicine 59:469, 2018) interpretive criteria. HEIGHT: 74 inches. WEIGHT: 270 lbs. PSMA expression score PROMISE criteria: High (3): SUV ? parotid-salivary gland, intermediate (2): SUV ? liver, low (1): > blood pool, < liver, (0): < blood pool. SUV reference values: Parotid glands 24.79. Normal liver parenchyma 7.8. Blood pool 2.4. FINDINGS: Head/Neck: Symmetric radiotracer concentration is defined in the bilateral parotid and submandibular glands. There is physiologic tracer activity within the context of the nasal cavity. There is no evidence of abnormal increased radiopharmaceutical concentration within the context of the cranial vault. CHEST: There is no evidence of abnormal increased radiotracer within the context of the bilateral hemithorax pulmonary parenchyma, mediastinal structures and right-left thoracic perihilum. Pertinent chest CT findings are as follows. Bilateral axillary and scattered mediastinal soft tissue densities are non-radiopharmaceutical avid. There are no parenchymal densities-nodules defined in the right and left hemithorax with quantitatively significant increased tracer uptake. Abdomen/Pelvis: Facilitated uptake is noted in the prostate gland generating a calculated maximal standard uptake value of 8.8. The PROMISE score is 2. The maximal axial diameter of the metabolic, morphologic abnormality is 27.3-mm. Physiologic radiopharmaceutical concentration is otherwise noted in the hepatic and splenic parenchyma, visualized intestinal tract, right and left kidneys, urinary bladder. Review of CT of the abdomen and pelvis reveals the following. Calcification phlebolith formation is noted in the bilateral lower hemipelvis. Right and left inguinal soft tissue densities are ametabolic. There is a fat containing left inguinal hernia noted. SKELETAL: Degenerative changes are noted in the cervical, thoracic and lumbar spine without evidence of increased radiopharmaceutical concentration. PET/PET/CT Tumor Base -Thigh Subs IMPRESSION: 1. ABNORMAL EXAMINATION INDICATIVE OF MALIGNANT VIABLE NEOPLASM. 2. Increased radiopharmaceutical concentration defined in the prostate gland fulfills quantitative criteria for viable neoplastic transformation. Electronic Signature Louis Hubbard DO Accurate Quantification of SUVs and standardized PROMISE scores for this report are calculated using the exclusive [employer], ([place] Patent No. [id number] [id number] [phone] [phone] [place] patent [id number] [phone] ). Standardization and correction of the FDG SUV metric exclusively available with [employer] intellectual property, allow for vendor non-specific objective quantitative sequential FDG PET-CT comparison and otherwise unobtainable optimization of the sensitivity and specificity of the examination. [email or web address] Electronically Signed: Louis Hubbard DO at 8:33 EDT ,
== END | disposition home or self-care (01) ==
LOC: ONC 10:22
PROVIDERS: PCP Family Medicine; Referring Provider Urology; Visit Provider Urology
DX: C61 Malignant neoplasm of prostate (principal)
CPT/HCPCS: 78815; A9595